=== PATIENT | female | born 1945 | race Caucasian/White ===

== ENCOUNTER → 2018-03-06 10:08 | Outpatient (CLI) | payer MEDICARE, SELFPAY ==
[2018-03-06 12:37] LABS: Hemoglobin A1c 6.3 % (4.2-6.3)
[2018-03-06 12:46] LABS: AST(SGOT) 13 U/L (15-37); Alanine Aminotransfer ALT/SGPT 26 U/L (13-56); Anion Gap 9 (5-15); BUN 18 mg/dL (7-18); BUN/Creat Ratio 22.4 RATIO (10-20); Calcium,Total 9.1 mg/dL (8.5-10.1); Chloride 107 mmol/L (98-107); Cholesterol 148 mg/dL (200); EST Glomerular Filtration Rate 75 mL/min (>60); Est Glom Filt Rate - Afr Amer 90 mL/min (>60); Glucose 93 mg/dL (74-106); High Density Lipoprotein 37 mg/dL; Potassium 3.7 mmol/L (3.5-5.1); Sodium Level 141 mmol/L (136-145); T4 Total, Thyroxin 9.9 ug/dL (4.8-13.9); Thyroid Stim Hormone (TSH) 1.01 uIU/mL (0.358-3.74); Triglycerides 127 mg/dL; Very Low Density Lipoprotein 25 mg/dL (5-40)
== END ==
PROVIDERS: Family Provider Family Medicine; PCP Family Medicine; Visit Provider Family Medicine
DX: I10 Essential (primary) hypertension (principal); E03.9 Hypothyroidism, unspecified; E78.5 Hyperlipidemia, unspecified; R73.9 Hyperglycemia, unspecified
CPT/HCPCS: 36415; 80048; 80061; 83036; 84436; 84443; 84450; 84460

== ENCOUNTER → 2018-09-29 07:06 | Outpatient (CLI) | payer MEDICARE, SELFPAY ==
[2018-09-29 07:46] LABS: Absolute Lymphocyte Count 1.83 X10^3/ul (0.83-4.51); Absolute Neutrophil Count 3.1 X10^3/uL (2.0-7.7); Basophil# 0.09 X10^3/uL; Basophil% 1.6 % (0-1); Eosinophil# 0.28 X10^3/uL; Eosinophils% 4.9 % (0-5); Hematocrit 43.5 % (37-47); Hemoglobin 14.1 g/dl (12.0-15.0); Lymphocyte # 1.83 X10^3/ul (4.0); Lymphocyte % 32.1 % (19-41); Mean Corp Hgb Conc 32.4 g/gl (32-36); Mean Corpuscular Hgb 30.9 pg (27.0-32.0); Mean Corpuscular Volume 95.2 fL (81-99); Mean Platelet Vol. 10.4 fl (6.2-12.0); Monocyte# 0.39 X10^3/uL; Monocyte% 6.8 % (0-10); Neutrophil # 3.11 X10^3/uL (2.7-7.7); Neutrophil % 54.6 % (47-70); Platelet Count 235 K/mm3 (150-450); RBC Distribution Width CV 13.1 % (11.6-14.6); Red Blood Count 4.57 M/mm3 (4.2-5.4); White Blood Count 5.7 K/mm3 (4.4-11.0)
[2018-09-29 07:47] LABS: POSITIVE COUNT NO; POSITIVE DIFFERENTIAL NO; POSITIVE MORPHOLOGY NO
[2018-09-29 08:27] LABS: AST(SGOT) 13 U/L (15-37); Alanine Aminotransfer ALT/SGPT 28 U/L (13-56); Albumin, Serum 3.3 g/dL (3.2-5.0); Alkaline Phosphatase 85 U/L (45-117); Anion Gap 8 (5-15); BUN 17 mg/dL (7-18); BUN/Creat Ratio 21.4 RATIO (10-20); Bilirubin, Direct 0.11 mg/dL (0.00-0.30); Calcium,Total 8.5 mg/dL (8.5-10.1); Chloride 110 mmol/L (98-107); Cholesterol 118 mg/dL (200); EST Glomerular Filtration Rate 75 mL/min (>60); Est Glom Filt Rate - Afr Amer 91 mL/min (>60); Glucose 96 mg/dL (74-106); High Density Lipoprotein 36 mg/dL; Potassium 3.7 mmol/L (3.5-5.1); Protein, Total 7.3 g/dL (6.4-8.2); Sodium Level 144 mmol/L (136-145); T4 Total, Thyroxin 7.9 ug/dL (4.8-13.9); Thyroid Stim Hormone (TSH) 1.13 uIU/mL (0.358-3.74); Triglycerides 117 mg/dL; Very Low Density Lipoprotein 23 mg/dL (5-40)
== END ==
PROVIDERS: Family Provider Family Medicine; PCP Family Medicine; Referring Provider Internal Medicine Cardiovascular Disease; Visit Provider Internal Medicine Cardiovascular Disease
DX: E78.5 Hyperlipidemia, unspecified (principal); R55 Syncope and collapse; E03.9 Hypothyroidism, unspecified; E87.6 Hypokalemia; R00.2 Palpitations
CPT/HCPCS: 36415; 80048; 80061; 80076; 84436; 84443; 85025

== ENCOUNTER → 2018-10-05 12:55 | Outpatient (CLI) | payer MEDICARE, SELFPAY ==
[2018-09-27 13:28] VITALS: BMI 26.2
--- NOTE | 2018-10-05 12:57 | ECHOD_ITS ---
Reason For Study: Palpitations Procedure This was a 2D Doppler, Color Flow transthoracic echocardiogram. Exam performed in department. Left Ventricle Normal size and thickness. The estimated ejection fraction is 65 %. Stage 1 diastolic dysfunction. No regional wall motion abnormalities noted. Right Ventricle Normal size and thickness. Normal systolic function. Atria Normal left atrium. Normal right atrium. Normal atrial septum. Mitral Valve Probable redundant chordae tendinae on anterior mitral leaflet with trivial MR noted. Tricuspid Valve Normal tricuspid valve. Mild (1+) tricuspid valve insufficiency. Right ventricular systolic pressure estimated to be 26 mmHg. Aortic Valve Trisinus/trileaflet aortic valve. Mild diffuse aortic valve thickening. Trivial aortic valve insufficiency. Pulmonic Valve Normal pulmonic valve. Trivial pulmonic valve insufficiency. Great Vessels Normal aortic root. Normal arch. Normal inferior vena cava. Inferior vena cava collapse with sniff. Pericardium/Pleural No pericardial effusion. MMode/2D Measurements & Calculations LVIDd: 3.8 cm IVSd: 1.1 cm Ao root diam: 3.1 cm LVIDs: 2.2 cm LVPWd: 0.98 cm RVDd: 3.2 cm FS: 41.5 % LAV(MOD-bp): 30.0 ml EDV(MOD-sp4): 61.8 ml EDV(MOD-sp2): 62.2 ml LAV(MOD-bp) Indexed: 17.7 ml/m2 ESV(MOD-sp4): 23.7 ml EF(MOD-sp2): 64.7 % LAV(MOD-sp2): 31.9 ml EF(MOD-sp4): 61.7 % LAV(MOD-sp4): 27.4 ml SV(MOD-sp4): 38.1 ml SV(MOD-sp2): 40.2 ml LA A4 area: 12.6 cm2 LA dimension(2D): 3.4 cm RA A4 area: 11.6 cm2 Doppler Measurements & Calculations MV E max adis: 49.5 cm/sec Lat Peak E' Adis: 7.6 cm/sec Med Peak E' Adis: 3.7 cm/sec MV A max adis: 72.5 cm/sec E/E' lat: 6.5 E/E' med: 13.2 MV E/A: 0.68 Ao V2 max: 124.5 cm/sec LV V1 max: 100.0 cm/sec PA V2 max: 104.8 cm/sec Ao max P.2 mmHg LV V1 max P.0 mmHg TR max adis: 225.7 cm/sec TR max P.4 mmHg Interpretation Summary The estimated ejection fraction is 65 %. Stage 1 diastolic dysfunction. Probable redundant chordae tendinae on anterior mitral leaflet with trivial MR noted. Mild (1+) tricuspid valve insufficiency. Right ventricular systolic pressure estimated to be 26 mmHg. Trivial aortic valve insufficiency. Compared to echo report dated 08/07/2013, no appreciable changes noted. Ordering Physician: Christo Dunn Referring Physician: Christo Dunn Performed By: Elise Napier RDCS
== END ==
PROVIDERS: Family Provider Family Medicine; PCP Family Medicine; Referring Provider Internal Medicine Cardiovascular Disease; Visit Provider Internal Medicine Cardiovascular Disease
DX: I10 Essential (primary) hypertension (principal); R00.2 Palpitations; R55 Syncope and collapse
CPT/HCPCS: 93306

== ENCOUNTER → 2018-10-08 09:20 | Outpatient (CLI) | payer MEDICARE, SELFPAY ==
--- NOTE | 2018-10-08 09:23 | STE_ITS ---
Reason For Study: Abn EKG Stress Results Protocol: Stress Echocardiogram Maximum Predicted HR: 149 bpm Target HR: 127 bpm % Maximum Predicted HR: 99 % DurationHeart Rate Stage (mm:ss) (bpm) BP Comment Baseline 90 158/90 Brady Protocol- Stage 1 3:00 118 148/82No chest pain Brady Protocol- Stage 2 3:00 133 176/80No chest pain Brady Protocol- Stage 3 3:00 148 170/82No chest pain Brady Protocol- Stage 4 0:01 148 / No chest pain Recovery 109 128/74 Stress Duration: 9:01 mm:ss Maximum Stress HR: 148 bpm Baseline Echocardiogram Findings The estimated ejection fraction is 65 %. Stress Echo Wall motion Data Resting WM Intermediate WM Stress WM Resting Wall Motion Wall Motion Stress No regional wall motion No regional wall motion abnormalities noted. abnormalities noted. EKG Data Normal intervals are noted. The baseline ECG displays normal sinus rhythm. The patient exercised according to the regular Brady protocol for a total duration of 9:01. The maximum heart rate attained was 150 beats per minute. This was 100% of maximum predicted heart rate. The patient exercised into stage 4 of the Brady protocol. During stress, there were no ST or T wave changes noted to suggest ischemia. No clinical angina was noted. Interpretation Summary The estimated ejection fraction is 65 %. Normal, adequate, treadmill echocardiogram. Negative for ischemia by EKG and echocardiographic criteria. No anginal symptoms noted. Rare PVCs noted. Appropriate blood pressure response to exercise. Average exercise capacity for age. Final LVEF is 75%. Test terminated due to leg discomfort. No complications. Ordering Physician: Christo Dunn MD Referring Physician: Janis Rueda M.D. Performed By: Elise Napier RDCS
== END ==
PROVIDERS: Family Provider Family Medicine; PCP Family Medicine; Referring Provider Internal Medicine Cardiovascular Disease; Visit Provider Internal Medicine Cardiovascular Disease
DX: I10 Essential (primary) hypertension (principal); R00.2 Palpitations; R55 Syncope and collapse; R94.31 Abnormal electrocardiogram [ECG] [EKG]
CPT/HCPCS: 93017; 93350

== ENCOUNTER → 2018-11-12 14:31 | Outpatient (CLI) | payer MEDICARE, SELFPAY ==
[2018-09-27 13:28] VITALS: BMI 26.2
--- NOTE | 2018-11-12 14:34 | BI_ITS ---
MAMMOGRAPHY - BILATERAL SCREENING 3-D ROSA SYNTHESIS REASON FOR EXAM: Female, 72 years old. Bilateral Screening 3-D tomosynthesis PERTINENT HISTORY: No significant family history. TECHNIQUE: 2-D mammograms and 3-D Rosa synthesis of the breast (s) were performed. CAD was performed. COMPARISON: Was made to the study of September 18, 2017. FINDINGS: The breast composition is of heterogeneous fibroglandular tissue. Scattered benign calcifications are seen. No dense spiculated masses or suspicious microcalcifications are identified. No architectural distortion is identified. There is no skin thickening or retraction. There has been no significant change since the prior study of September 18, 2017. BI/SCREENING MAMM (CAD), BILAT IMPRESSION: No mammographic signs of malignancy. Routine yearly mammograms recommended. ASSESSMENT CATEGORY: BIRADS Category 1: Negative. A letter regarding these results will be sent to the patient by the facility within 30 days. FOLLOW UP RECOMMENDATION: Yearly follow up mammogram recommended. (A) Approximately 10% of breast cancers are not detected by mammography. A normal mammogram should not delay biopsy of a clinically suspicious abnormality. Electronically Signed: Harvinder Farah, at 11:32 EST Tel , Service support ,
== END ==
PROVIDERS: Family Provider Family Medicine; PCP Family Medicine; Referring Provider Family Medicine; Visit Provider Family Medicine
DX: Z12.31 Encounter for screening mammogram for malignant neoplasm of breast (principal)
CPT/HCPCS: 77063; 77067

== ENCOUNTER → 2018-11-14 14:47 | Outpatient (CLI) | payer MEDICARE, SELFPAY | PROVIDERS: Family Provider Family Medicine; PCP Family Medicine; Referring Provider Internal Medicine Gastroenterology; Visit Provider Internal Medicine Gastroenterology | DX: K58.1 Irritable bowel syndrome with constipation (principal); R10.9 Unspecified abdominal pain | CPT/HCPCS: 82274; 87177; 87209; 87506 ==

== ENCOUNTER → 2019-01-18 15:36 | Outpatient (CLI) | payer MEDICARE, SELFPAY ==
[2018-09-27 13:28] VITALS: BMI 26.2
--- NOTE | 2019-01-18 12:10 | COLBX_PTH ---
PATIENT: ANDREY TAY LOC: [facility] U#:[id number] AGE/SX: 79/F ROOM: RE01/18/[address]: Dr. Kelton Reed MD : 1945 BED: DIS: SPEC #: [id number] RECD: 01/18/19 15:32 STATUS: KATHLEEN KAREN #: [id number] DELMY: 01/18/19 12:[address]: Kelton Reed DEPT: SURGICAL PATHOLOGY RECD BY: Guerrero Franklin ENTERED: 01/21/19 13:51 SP TYPE: COLON BX OTHR DR: Dr. Janis Rueda MD [facility] Tissues: Right colon Procedures: Surgery Specimen Level IV HEADER OPERATION: Colonoscopy with biopsy PRE-OP DIAGNOSIS: IBS TISSUE SUBMITTED: Right colon polyp biopsies, rule out adenoma MICROSCOPIC DIAGNOSIS Right colon polyp, biopsy: Polypoid fragments of benign colonic tissue. See comment. AM:adenike 01/22/19 COMMENT Neither hyperplastic nor adenomatous change is identified. Clinical correlation is suggested. MICROSCOPIC DESCRIPTION Slides are reviewed. GROSS DESCRIPTION Received in fixative is one container labeled with the patient's name and designated right colon. The specimen consists of two irregular fragments of light duarte soft tissue that in aggregate measure 0.3 x 0.3 x 0.1 cm. The specimen is totally submitted in one cassette. / SJ:rg 01/21/19 TC:5 CPT: 74254
== END ==
PROVIDERS: Family Provider Family Medicine; PCP Family Medicine; Referring Provider Internal Medicine Gastroenterology; Visit Provider Internal Medicine Gastroenterology
DX: K58.9 Irritable bowel syndrome, unspecified (principal)
CPT/HCPCS: 88305

== ENCOUNTER → 2019-05-03 08:05 | Outpatient (CLI) | payer MEDICARE, SELFPAY ==
[2019-04-11 13:50] VITALS: BMI 26.9
[2019-05-03 10:48] LABS: AST(SGOT) 19 U/L (15-37); Alanine Aminotransfer ALT/SGPT 32 U/L (13-56); Anion Gap 8 (5-15); BUN 14 mg/dL (7-18); BUN/Creat Ratio 18.3 RATIO (10-20); Calcium,Total 8.9 mg/dL (8.5-10.1); Chloride 110 mmol/L (98-107); Cholesterol 157 mg/dL (200); Creatinine, Serum 0.77 mg/dL (0.55-1.02); EST Glomerular Filtration Rate 79 mL/min (>60); Est Glom Filt Rate - Afr Amer 95 mL/min (>60); Glucose 105 mg/dL (74-106); High Density Lipoprotein 42 mg/dL; Potassium 3.9 mmol/L (3.5-5.1); Sodium Level 144 mmol/L (136-145); T4 Total, Thyroxin 9.8 ug/dL (4.8-13.9); Thyroid Stim Hormone (TSH) 1.07 uIU/mL (0.358-3.74); Triglycerides 129 mg/dL; Very Low Density Lipoprotein 26 mg/dL (5-40)
== END ==
PROVIDERS: Family Provider Family Medicine; PCP Family Medicine; Referring Provider Family Medicine; Visit Provider Family Medicine
DX: I10 Essential (primary) hypertension (principal); E03.9 Hypothyroidism, unspecified; E78.5 Hyperlipidemia, unspecified
CPT/HCPCS: 36415; 80048; 80061; 84436; 84443; 84450; 84460

== ENCOUNTER → 2019-07-01 12:04 | Outpatient (CLI) | payer MEDICARE, SELFPAY ==
[2019-04-11 13:50] VITALS: BMI 26.9
--- NOTE | 2019-07-01 12:07 | RAD_ITS ---
STUDY: X-RAY - LEFT KNEE REASON FOR EXAM: Female, 73 years old. Pain. TECHNIQUE: 4 view(s) of the knee. COMPARISON: None. FINDINGS: Normal visualized distal femur. Normal visualized proximal tibia and fibula. Normal proximal tibiofibular articulation. Normal medial femorotibial compartment. Normal lateral femorotibial compartment. Normal patellofemoral articulation. There is a soft tissue prominence in the suprapatellar region suggesting a small volume joint effusion. The soft tissue structures are unremarkable. RAD/Knee 4 or More Views IMPRESSION: Small joint effusion. No demonstrated fracture, dislocation, or destructive osseous lesion. Electronically Signed: Ceferino Au MD at 2:44 EDT , Service support ,
== END ==
PROVIDERS: Family Provider Family Medicine; PCP Family Medicine; Referring Provider Family Medicine; Visit Provider Family Medicine
DX: M25.562 Pain in left knee (principal)
CPT/HCPCS: 73564

== ENCOUNTER 2019-07-30 09:30 | Outpatient (RCR) | payer MEDICARE, SELFPAY ==
[2019-04-11 13:50] VITALS: BMI 26.9
--- NOTE | 2019-07-11 09:37 | HP.PTEVAL ---
Patient's Visit Information ANDREY TAY is a 73 year old F referred to Physical Therapy by Janis Rueda MD with a diagnosis of L knee pain. Date of Evaluation: 07/04/19 Physical Therapist: Olaf Gaming DPT - Visit Plan Frequency: 2x /Week Duration: 4-6 Weeks Plan: Start with ROM progressing as toelrated, add in strengthening in [place] progressing as able. May use modaltiies if needed. - Subjective Findings: Pt. is here today for her initial evaluation with diagnosis of knee pain. Pt. reports no mech of injury, no N/T. pt. did have an xray showing no fx and no osteoarthtritis. Pt. dose have some small joint effusion as seen in her xray. Pt. does not use AD. Pt. repots increased pain with steps, walking and standing. Reduced pain with sitting and lying down. Pt. has does some light icing, but not consistently. Pt. is able to sleep wihtout much issues. She is hopeful to reduce her symptoms get back to all walking and recreational actvities without limitations. - Pain L knee Pain Intensity (Out of 10): 3 Pain Intensity Range: 0, 6 - Objective POSTURE: Pt. has slgith wt. shift to R side in stance. Normal posture other pedroza, slight L knee flexion in stance. PALPATION: Pt. has slight increase in symptoms at L medial joint line and same aat posterior aspect of popliteal fossa. NEURO: normal throughout. ROM: 0-5-121deg. L knee ROM. Pt. has normal ROM of rest of knee and hips. MMT: Pt. has general 4/5 strength of bilateral LEs. GAIT: Pt. ambulates without AD. Pt. lacks TKE on LLE during stance phase. Pt. has antalgic patern. STAIRS: pt. has increased pain with both ascending and descending. - Special Tests L Knee Juan - Meniscus: Positive L Knee Disco Test - Meniscus: Positive L Knee Tiburcio - ACL: Negative L Knee Anterior Drawer - ACL: Negative L Knee Pivot Shift - ACL, Ant. Rotator Instability: Negative L Knee Posterior Sag - PCL: Negative L Knee Valgus - MCL: Negative L Knee Varus - LCL: Negative - Goals Goal 1:: Pt. to be I with HEP. Goal Time Frame: 4-6 Weeks Goal 2:: Pt. to have icnreased L knee ROM to full without increase insymptoms. Goal Time Frame: 4-6 Weeks Goal 3:: Pt. to ambulate unlimited distances withotu increase in symptoms. Goal Time Frame: 4-6 Weeks Goal 4:: Pt. to negotiate steps with 1 HR with reciprocal patern withotu increase in symptoms. Goal Time Frame: 4-6 Weeks Goal 5:: Pt. to have increased strength in LLE by 1/2 grade of all effected musculature. - Rehabilitation Potential Physical Therapy Diagnosis: Pt. has signs and symptoms consistent with L knee pain. Pt. has pain with end ranges of motions and increased pain with special testing with torsion. DUe to xray being negative for acute fx and no OA, I would suggest degenerative meniscal tear as her issuse. I would like to trial PT to reduce symptoms and increase stability around her knee joint. Rehabilitation Potential: Good - Anticipated Interventions Patient/Client Instruction: Educate patient on: Condition, Plan of Care, Risk Factors, Benefits of Fitness Program For the Purpose of:: To improve decision making, To facilitate caregiver knowledge, To improve self management, To prevent re-injury, To improve ability to perform tasks related to life management Therapeutic Exercise to Include: Strength training, Power training, Endurance training, Balance training, Body mechanics, Postural training, Flexibilty training, Gait and locomotor training, Passive ROM, Active ROM, Dynamic Lumbar Stabilization For the Purpose of:: To decrease pain, To increase ROM, To improve nutrient delivery to tissue, To increase oxygenation perfusion, To improve muscle performance and motor function Manual Therapy Techniques to Include: Massage, Scar massage For the Purpose of:: To decrease pain, To increase ROM, To improve nutrient delivery to tissue, To increase oxygenation perfusion, To improve muscle performance and motor function, To improve ability to perform ADL's Thermo therapy (hot pack): Yes Ultrasound (thermal/non thermal): Yes For the Purpose of:: To decrease pain, To decrease swelling/inflammation, To increase ROM Thank you for the opportunity to evaluate your patient. For Medicare and Medicare HMO plans, please review the plan of care and approve it. It will need to be FAXED BACK to us at [phone] for Medicare purposes. For Medicare only, by signing this I certify the plan of care. Please let me know if there are questions or concerns regarding this plan of care. Physician Signature: Date:
--- NOTE | 2019-07-30 13:35 | HP.PTDCSUM ---
HP - PT D/C Summary It has been my pleasure to treat ANDREY TAY under orders from Janis Rueda MD, for the diagnosis of L knee pain for a total of 6 visit(s). Discharge Date: 07/30/19 Please see the following information for a summary of their discharge status. - Subjective Subjective: Pt. reports no pain this date. I am doing much better today. Pt. reprots no issues. She has not had any problems over the past week. Pt. reports being 95% better overall. - Pain L knee Pain Intensity (Out of 10): 0 - Overall Improvement % Improvement: 95 - Objective Objective/Function: ROM: 0-0-125deg NE,. MMT: 5/5 throughout without increase in symptoms. GAIT: Pt. has good walking pattern without increase in symptoms, normal stair negotiation. Pt. is no longer having any pain - Goals Goal 1:: Pt. to be I with HEP. Goal Progress: Goal Met Goal 2:: Pt. to have icnreased L knee ROM to full without increase insymptoms. Goal Progress: Goal Met Goal 3:: Pt. to ambulate unlimited distances withotu increase in symptoms. Goal Progress: Goal Met Goal 4:: Pt. to negotiate steps with 1 HR with reciprocal patern withotu increase in symptoms. Goal 5:: Pt. to have increased strength in LLE by 1/2 grade of all effected musculature. - Plan Plan: Pt. to be DC to HEP at this point in time. - D/C Information Discharge Comments: Pt. was treated for her knee pain with ROM, exercises and modaltities. Pt. is no longer having any pain and has improved ROM. Pt. is back to walking with minimal issues. Pt. will be DC from PT at this point in time. If there are questions or concerns regarding this patient's physical therapy, please feel free to call me at [phone]. Thank you for the referral of this patient. Sincerely, Olaf Gaming DPT
== END 2019-07-30 14:11 | disposition home or self-care (01) ==
LOC: PT 09:30
PROVIDERS: Family Provider Family Medicine; PCP Family Medicine; Referring Provider Family Medicine; Visit Provider Family Medicine
DX: M25.569 Pain in unspecified knee (principal)
CPT/HCPCS: 97035; 97110; 97161; 97530

== ENCOUNTER → 2019-10-25 08:06 | Outpatient (CLI) | payer MEDICARE, SELFPAY ==
[2019-10-10 12:58] VITALS: BMI 26.4
[2019-10-25 10:12] LABS: Anion Gap 5 (5-15); BUN 20 mg/dL (7-18); BUN/Creat Ratio 23.4 RATIO (10-20); Calcium,Total 9.1 mg/dL (8.5-10.1); Chloride 108 mmol/L (98-107); Creatinine, Serum 0.86 mg/dL (0.55-1.02); EST Glomerular Filtration Rate 69 mL/min (>60); Est Glom Filt Rate - Afr Amer 84 mL/min (>60); Glucose 109 mg/dL (74-106); Potassium 3.7 mmol/L (3.5-5.1); Sodium Level 141 mmol/L (136-145)
== END ==
PROVIDERS: Family Provider Family Medicine; PCP Family Medicine; Referring Provider Family Medicine; Visit Provider Nurse Practitioner Family
DX: I10 Essential (primary) hypertension (principal); E78.5 Hyperlipidemia, unspecified; R00.2 Palpitations; E87.6 Hypokalemia; E03.9 Hypothyroidism, unspecified; Z98.890 Other specified postprocedural states
CPT/HCPCS: 36415; 80048

== ENCOUNTER → 2019-11-14 10:13 | Outpatient (CLI) | payer MEDICARE, SELFPAY ==
[2019-04-11 13:50] VITALS: BMI 26.9
[2019-10-10 12:58] VITALS: BMI 26.4
--- NOTE | 2019-11-14 10:15 | BI_ITS ---
MAMMOGRAPHY - BILATERAL SCREENING 3-D TOMOSYNTHESIS REASON FOR EXAM: Female, 73 years old. Routine annual screening mammogram. PERTINENT HISTORY: History of excisional biopsy at age 22 and at age 28. TECHNIQUE: 2-D mammograms and 3-D Tomosynthesis of the breast (s) were performed. CAD was performed. COMPARISON: November 12, 2018, September 18, 2017 FINDINGS: The breast composition is almost entirely fat. Scattered benign calcifications are seen. No dense spiculated masses or suspicious microcalcifications are identified. No architectural distortion is identified. There is no skin thickening or retraction. There has been no significant change since the prior study. BI/SCREEN MAMM (CAD) W/ROSA BILAT IMPRESSION: No mammographic signs of malignancy. Routine yearly mammograms recommended. ASSESSMENT CATEGORY: BIRADS Category 2: Benign. A letter regarding these results will be sent to the patient by the facility within 30 days. FOLLOW UP RECOMMENDATION: Yearly follow up mammogram recommended. (A) Approximately 10% of breast cancers are not detected by mammography. A normal mammogram should not delay biopsy of a clinically suspicious abnormality. Electronically Signed: Jamison Ayala MD at 15:29 EST , Service support ,
== END ==
PROVIDERS: Family Provider Family Medicine; PCP Family Medicine; Referring Provider Family Medicine; Visit Provider Family Medicine
DX: Z12.31 Encounter for screening mammogram for malignant neoplasm of breast (principal)
CPT/HCPCS: 77063; 77067

== ENCOUNTER → 2020-06-15 08:47 | Outpatient (CLI) | payer MEDICARE, SELFPAY ==
[2020-06-09 11:05] VITALS: BMI 26.4
[2020-06-15 10:30] LABS: AST(SGOT) 14 U/L (15-37); Alanine Aminotransfer ALT/SGPT 29 U/L (13-56); Anion Gap 6 (5-15); BUN 18 mg/dL (7-18); Calcium,Total 8.7 mg/dL (8.5-10.1); Chloride 109 mmol/L (98-107); Cholesterol 159 mg/dL (200); Creatinine, Serum 0.82 mg/dL (0.55-1.02); EST Glomerular Filtration Rate 73 mL/min (>60); Est Glom Filt Rate - Afr Amer 88 mL/min (>60); Glucose 99 mg/dL (74-106); High Density Lipoprotein 43 mg/dL; Potassium 3.6 mmol/L (3.5-5.1); Sodium Level 139 mmol/L (136-145); T4 Total, Thyroxin 8.8 ug/dL (4.8-13.9); Thyroid Stim Hormone (TSH) 0.61 uIU/mL (0.358-3.74); Triglycerides 117 mg/dL; Very Low Density Lipoprotein 23 mg/dL (5-40)
[2020-06-15 16:36] LABS: Hemoglobin A1c 5.9 % (3.8-5.6)
== END ==
PROVIDERS: PCP Family Medicine; Referring Provider Family Medicine; Visit Provider Family Medicine
DX: I10 Essential (primary) hypertension (principal); E78.5 Hyperlipidemia, unspecified; E03.9 Hypothyroidism, unspecified; Z83.3 Family history of diabetes mellitus
CPT/HCPCS: 36415; 80048; 80061; 83036; 84436; 84443; 84450; 84460

== ENCOUNTER → 2020-11-16 10:10 | Outpatient (CLI) | payer MEDICARE, SELFPAY ==
[2020-06-09 11:05] VITALS: BMI 26.4
--- NOTE | 2020-11-16 10:13 | BI_ITS ---
MAMMOGRAPHY - BILATERAL SCREENING REASON FOR EXAM: Female, 74 years old. Routine annual screening examination. PERTINENT HISTORY: There is omentum fat stranding in the lower abdomen and pelvis may represent peritonitis. TECHNIQUE: Digital bilateral breast rosa (3D mammographic acquisition) in the CC and MLO projections. 2-D mediolateral oblique (MLO) and craniocaudad (CC) views of both breasts were obtained. CAD: Full Field Digital Mammography with Computer Added Detection was performed. COMPARISON: 11/14/2019 and 11/12/2018 FINDINGS: Breast Composition: There are scattered areas of fibroglandular density. Scattered benign calcifications are seen. No dense spiculated masses or suspicious microcalcifications are identified. No architectural distortion is identified. There is no skin thickening or retraction. There has been no significant change since the prior study. BI/SCREEN MAMM (CAD) W/ROSA BILAT IMPRESSION: Stable bilateral screening mammogram. Yearly follow-up mammogram recommended. (A) ASSESSMENT CATEGORY: BIRADS Category 2: Benign. A letter regarding these results will be sent to the patient by the facility within 30 days. Approximately 10% of breast cancers are not detected by mammography. A normal mammogram should not delay biopsy of a clinically suspicious abnormality. [id number] Electronically Signed: Annette Kwan, at 16:11 EST Tel , Service support ,
== END ==
PROVIDERS: PCP Family Medicine; Referring Provider Family Medicine; Visit Provider Family Medicine
DX: Z12.31 Encounter for screening mammogram for malignant neoplasm of breast (principal)
CPT/HCPCS: 77063; 77067

== ENCOUNTER → 2021-03-09 10:14 | Outpatient (CLI) | payer MEDICARE, SELFPAY ==
[2020-06-09 11:05] VITALS: BMI 26.4
[2021-03-09 12:53] LABS: Absolute Lymphocyte Count 1.39 X10^3/uL (0.83-4.51); Absolute Neutrophil Count 3.5 X10^3/uL (2.0-7.7); Basophil# 0.08 X10^3/uL; Basophil% 1.4 % (0-1); Eosinophil# 0.17 X10^3/uL; Hematocrit 46.3 % (37-47); Hemoglobin 14.8 g/dL (12.0-15.0); Lymphocyte # 1.39 X10^3/ul (0.83-4.51); Lymphocyte % 24.8 % (19-41); Mean Corpuscular Hgb 31.1 pg (27.0-32.0); Mean Corpuscular Volume 97.3 fL (81-99); Mean Platelet Vol. 11.3 fl (6.2-12.0); Monocyte# 0.44 X10^3/uL; Monocyte% 7.8 % (0-10); NRBC Flagged by Analyzer 0 % (0-5); Neutrophil # 3.51 X10^3/uL (2.7-7.7); Neutrophil % 62.6 % (47-70); Platelet Count 256 K/mm3 (150-450); RBC Distribution Width CV 12.8 % (11.6-14.6); RBC Distribution Width SD 46.1 fl (35.1-43.9); Red Blood Count 4.76 M/mm3 (4.2-5.4); White Blood Count 5.6 K/mm3 (4.4-11.0)
[2021-03-09 13:03] LABS: AST(SGOT) 20 U/L (15-37); Alanine Aminotransfer ALT/SGPT 42 U/L (13-56); Albumin, Serum 3.9 g/dL (3.2-5.0); Alkaline Phosphatase 80 U/L (45-117); Anion Gap 8 (5-15); BUN 17 mg/dL (7-18); BUN/Creat Ratio 19.2 RATIO (10-20); Calcium,Total 9.2 mg/dL (8.5-10.1); Chloride 106 mmol/L (98-107); Cholesterol 144 mg/dL (200); Creatinine, Serum 0.89 mg/dL (0.55-1.02); EST Glomerular Filtration Rate 66 mL/min (>60); Est Glom Filt Rate - Afr Amer 80 mL/min (>60); Globulin 3.9 g/dL (2.2-4.2); Glucose 95 mg/dL (74-106); High Density Lipoprotein 44 mg/dL; Microalbumin,Random Urine 20.5 mg/L (NO RANGE EST.); Microalbumin:Creatinine Ratio 7.4 mg/g CRE (<30 mg/g CRE); Potassium 3.5 mmol/L (3.5-5.1); Protein, Total 7.8 g/dL (6.4-8.2); Sodium Level 141 mmol/L (136-145); T4 Free Direct 1.13 ng/dL (0.76-1.46); Thyroid Stim Hormone (TSH) 0.74 uIU/mL (0.358-3.74); Triglycerides 100 mg/dL; Very Low Density Lipoprotein 20 mg/dL (5-40)
[2021-03-09 13:30] LABS: Hemoglobin A1c 5.9 % (3.8-5.6)
== END ==
PROVIDERS: PCP Family Medicine; Visit Provider Family Medicine
DX: E11.9 Type 2 diabetes mellitus without complications (principal); E03.9 Hypothyroidism, unspecified; E26.1 Secondary hyperaldosteronism; E78.5 Hyperlipidemia, unspecified; Z51.81 Encounter for therapeutic drug level monitoring
CPT/HCPCS: 36415; 80053; 80061; 82043; 82570; 83036; 84439; 84443; 85025

== ENCOUNTER → 2021-09-30 09:50 | Outpatient (CLI) | payer MEDICARE, SELFPAY ==
--- NOTE | 2021-09-30 10:06 | MRI_ITS ---
STUDY: MRI BRAIN WITH AND WITHOUT CONTRAST REASON FOR EXAM: Female, 75 years old. HX OF STROKE, LT SIDED HEADACHE, FACIAL PARESTHESIA TECHNIQUE: Standardized multiplanar fat and water weighted pulse sequences were obtained. IV 13 CC DOTAREM was administered for the contrast portion of the examination. COMPARISON: 06/13/2014 FINDINGS: Normal size of the ventricles and extra-axial spaces for the patient''s age. There are multiple white matter hyperintensities, distributed throughout the deep white matter tracts of the cerebral hemispheres, consistent with mild chronic white matter ischemic changes. Normal bilateral basal ganglia. Normal thalami. There is no extra-axial fluid accumulation. Normal flow voids within the major intracranial circulation suggesting patency by spin echo criteria. Normal venous enhancement. There is no enhancing intra-axial or extra-axial abnormality. Normal sella turcica, pituitary gland, infundibular stalk, optic chiasm and hypothalamus. Normal tectal plate and pineal gland. Normal midbrain, jessy and medulla. Normal cerebellum. Normal basal cisterns. There is fluid and mucosal thickening on the right maxillary sinus. MRI/Brain W/WO Contrast IMPRESSION: No acute intracranial abnormality. Mild chronic microvascular ischemic changes. Right maxillary sinus disease. Electronically Signed: Stacy Javier MD at 8:11 EST Tel , Service support ,
[2021-09-30 10:21] LABS: CREATININE FINGERSTICK 0.7 mg/dL (0.55-1.02); EGFR FINGERSTICK > 60.0000 mL/min (>60)
== END ==
PROVIDERS: PCP Family Medicine; Visit Provider Family Medicine
DX: R51.9 Headache, unspecified (principal); R20.2 Paresthesia of skin; Z86.73 Personal history of transient ischemic attack (TIA), and cerebral infarction without residual deficits
CPT/HCPCS: 70553; A9575

== ENCOUNTER → 2021-11-17 08:14 | Outpatient (CLI) | payer MEDICARE, SELFPAY ==
--- NOTE | 2021-11-17 08:16 | BI_ITS ---
MAMMOGRAPHY - BILATERAL SCREENING 3-D TOMOSYNTHESIS REASON FOR EXAM: Female, 75 years old. SCREENING PERTINENT HISTORY: No significant family history. TECHNIQUE: 2-D mammograms and 3-D Tomosynthesis of the breast (s) were performed. CAD was performed. COMPARISON: 11/16/2020 FINDINGS: The breast composition is heterogeneously dense that can obscure small breast masses. Scattered benign calcifications are seen. No dense spiculated masses or suspicious microcalcifications are identified. No architectural distortion is identified. There is no skin thickening or retraction. There has been no significant change since the prior study. BI/SCRN MAMM (CAD)W/ROSA BILAT IMPRESSION: No mammographic signs of malignancy. Routine yearly mammograms recommended. ASSESSMENT CATEGORY: BIRADS Category 1: Negative. A letter regarding these results will be sent to the patient by the facility within 30 days. FOLLOW UP RECOMMENDATION: Yearly follow up mammogram recommended. (A) Approximately 10% of breast cancers are not detected by mammography. A normal mammogram should not delay biopsy of a clinically suspicious abnormality. Electronically Signed: Lemuel Nova MD at 9:06 EST Tel , Service support ,
== END ==
PROVIDERS: PCP Family Medicine; Referring Provider Family Medicine; Visit Provider Family Medicine
DX: Z12.31 Encounter for screening mammogram for malignant neoplasm of breast (principal)
CPT/HCPCS: 77063; 77067

== ENCOUNTER → 2022-03-11 | Outpatient (CLI) | payer MEDICARE, SELFPAY ==
--- NOTE | 2022-03-11 10:38 | RAD_ITS ---
STUDY: X-RAY CHEST REASON FOR EXAM: Female, 76 years old. CHEST PAIN TECHNIQUE: Frontal and lateral views of the chest. COMPARISON: 06/12/2014 FINDINGS: The lungs are clear and expanded. There is no demonstrated pleural abnormality. Normal size heart. Normal mediastinum and cullen. Normal visualized pulmonary arteries. Normal visualized aortic arch and descending thoracic aorta. There are diffuse degenerative changes of the visualized thoracic spine. Normal visualized ribs, clavicles, and shoulders. There is no demonstrated abnormality of the visualized soft tissue structures of the upper abdomen. RAD/Chest PA and Lateral IMPRESSION: No acute cardiopulmonary process. Electronically Signed: Kimberley Bragg MD at 11:25 EDT ,
== END | disposition home or self-care (01) ==
LOC: MTRAD 10:35
PROVIDERS: PCP Family Medicine; Referring Provider Family Medicine; Visit Provider Family Medicine
DX: R07.9 Chest pain, unspecified (principal)
CPT/HCPCS: 71046

== ENCOUNTER → 2022-03-22 | Outpatient (CLI) | payer MEDICARE, SELFPAY ==
--- NOTE | 2022-03-23 10:03 | STRESSREP ---
Stress Test Report Date: 03-22-2022 Procedure: Pharmacologic stress nuclear imaging study Indications: Chest pain; abnormal ECG; wide-complex tachycardia Consent: Per the patient Procedure: The patient underwent pharmacologic (Regadenoson 0.4mg ) evaluation with a peak heart rate of 104 beats per minute (71%predicted maximal heart rate) and a peak blood pressure of 144/68 mmHg. The baseline ECG demonstrated normal sinus rhythm. The peak pharmacologic ECG demonstrated no obvious ST segment changes. There was a rare PVC during recovery. There was no complaint of chest discomfort during pharmacologic infusion or recovery. The examination was discontinued secondary to completion of protocol. Impression: 1. Pharmacologic (Regadenoson) evaluation 2. Peak pharmacologic ECG with no obvious ST segment change. 3. There were no cardiac dysrhythmias pretest, during pharmacologic infusion, or recovery. 4. Nuclear images pending Myocardial perfusion imaging study: Technique: The patient was injected with 12.0 millicuries of technetium 99m Cardiolite and subsequently rest SPECT Cardiolite nuclear imaging was obtained in the horizontal long, vertical long, and short axis views. The patient underwent pharmacologic (Regadenoson) evaluation with a peak heart rate of 104 beats per minute (71% percent predicted maximal heart rate) and a peak blood pressure of 144/68 mmHg. The patient was injected with 33.9 millicuries of technetium 99m Cardiolite and subsequently stress SPECT Cardiolite nuclear imaging was obtained in the horizontal long, vertical long, and short axis views. A gated Cardiolite study at peak stress was obtained. Interpretation: Rest and stress SPECT Cardiolite nuclear imaging status post realignment, normalization, and attenuation correction demonstrate relative uniform tracer uptake and myocardial perfusion appearing within normal limits. There is end systolic thickening and brightening. The gated Cardiolite study demonstrates myocardial thickening and inward wall motion. The reported LVEF is 77%. Impression: 1. Rest and stress SPECT Cardiolite nuclear imaging demonstrate relative uniform tracer uptake and myocardial perfusion appearing within normal limits. 2. The gated Cardiolite study reports an LVEF of 77%. This note was generated with [employer] software. It may contain incorrect words, spelling, and punctuation that were not noted in checking the note before signing.
== END | disposition home or self-care (01) ==
LOC: CVS 07:07
PROVIDERS: PCP Family Medicine; Referring Provider Family Medicine; Visit Provider Family Medicine
DX: R07.9 Chest pain, unspecified (principal); R94.31 Abnormal electrocardiogram [ECG] [EKG]
CPT/HCPCS: 78452; 93017; A9500; A4216; J2785

== ENCOUNTER → 2022-04-21 | Outpatient (CLI) | payer MEDICARE, SELFPAY ==
--- NOTE | 2022-04-21 11:09 | US_ITS ---
STUDY: ULTRASOUND BREAST - LEFT REASON FOR EXAM: Female, 76 years old. Left medial breast pain. TECHNIQUE: Axial and longitudinal images of the LEFT breast were performed with a high resolution ultrasound transducer. # OF IMAGES: 17 COMPARISON: Comparison is made with prior sonogram of the left breast dated 11/10/2014. FINDINGS: LEFT Breast: The medial aspect of the left breast was examined by ultrasound. There is heterogeneous glandular tissue. No sonographic abnormality is seen. US/Breast Limited Unilateral IMPRESSION: No sonographic abnormality is seen. ASSESSMENT CATEGORY: BIRADS Category 1: Negative. A letter regarding these results will be sent to the patient by the facility within 30 days. Electronically Signed: Frank Gray MD at 11:50 EDT ,
== END | disposition home or self-care (01) ==
LOC: OPUS 11:08
PROVIDERS: PCP Family Medicine; Visit Provider Family Medicine
DX: N64.4 Mastodynia (principal)
CPT/HCPCS: 76642

== ENCOUNTER → 2022-09-22 | Outpatient (CLI) | payer MEDICARE, SELFPAY ==
[2022-09-22 12:39] LABS: Anion Gap 4 (5-15); BUN 17 mg/dL (7-18); BUN/Creat Ratio 18.2 RATIO (10-20); Calcium,Total 9.8 mg/dL (8.5-10.1); Chloride 108 mmol/L (98-107); Creatinine, Serum 0.94 mg/dL (0.55-1.02); EST Glomerular Filtration Rate 62 mL/min (>60); Est Glom Filt Rate - Afr Amer 75 mL/min (>60); Glucose 95 mg/dL (74-106); Sodium Level 140 mmol/L (136-145)
== END | disposition home or self-care (01) ==
LOC: BFHLAB 10:48
PROVIDERS: PCP Family Medicine; Visit Provider Family Medicine
DX: N18.31 Chronic kidney disease, stage 3a (principal); R73.01 Impaired fasting glucose
CPT/HCPCS: 36415; 80048; 83036

== ENCOUNTER → 2022-11-24 | Outpatient (CLI) | payer MEDICARE, SELFPAY ==
--- NOTE | 2022-11-24 10:14 | BI_ITS ---
MAMMOGRAPHY - BILATERAL SCREENING REASON FOR EXAM: Female, 76 years old. Routine annual screening examination. PERTINENT HISTORY: Grandmother with breast cancer. Remote left excisional breast biopsies. TECHNIQUE: Digital bilateral breast rosa (3D mammographic acquisition) in the CC and MLO projections. 2-D mediolateral oblique (MLO) and craniocaudad (CC) views of both breasts were obtained. CAD: Full Field Digital Mammography with Computer Added Detection was performed. COMPARISON: Comparison is made with prior study dated 11/17/2021 and 11/16/2020. FINDINGS: Breast Composition: The breasts are heterogeneously dense, which may obscure small masses. There are no dominant masses or suspicious calcifications. No other significant abnormalities are identified. There has been no significant change since the prior study. BI/SCRN MAMM (CAD)W/ROSA BILAT IMPRESSION: Stable bilateral screening mammogram. Yearly follow-up mammogram recommended. (A) ASSESSMENT CATEGORY: BIRADS Category 1: Negative. A letter regarding these results will be sent to the patient by the facility within 30 days. Approximately 10% of breast cancers are not detected by mammography. A normal mammogram should not delay biopsy of a clinically suspicious abnormality. [id number] Electronically Signed: Frank Gray MD at 12:21 EST ,
== END | disposition home or self-care (01) ==
LOC: OPBI 10:12
PROVIDERS: PCP Family Medicine; Visit Provider Family Medicine
DX: Z12.31 Encounter for screening mammogram for malignant neoplasm of breast (principal)
CPT/HCPCS: 77063; 77067

== ENCOUNTER → 2022-12-09 | Outpatient (CLI) | payer MEDICARE, SELFPAY ==
[2022-12-09 18:17] LABS: Absolute Lymphocyte Count 1.88 X10^3/uL (0.83-4.51); Absolute Neutrophil Count 5.3 X10^3/uL (2.0-7.7); Basophil# 0.08 X10^3/uL; Eosinophil# 0.25 X10^3/uL; Eosinophils% 3.1 % (0-5); Hematocrit 43.3 % (37-47); Hemoglobin 14.5 g/dL (12.0-15.0); Lymphocyte # 1.88 X10^3/ul (0.83-4.51); Lymphocyte % 23.4 % (19-41); Mean Corp Hgb Conc 33.5 g/dL (32-36); Mean Corpuscular Hgb 32.2 pg (27.0-32.0); Mean Corpuscular Volume 96.2 fL (81-99); Monocyte# 0.56 X10^3/uL; NRBC Flagged by Analyzer 0 % (0-5); Neutrophil # 5.25 X10^3/uL (2.7-7.7); Neutrophil % 65.3 % (47-70); Platelet Count 259 K/mm3 (150-450); RBC Distribution Width CV 12.7 % (11.6-14.6); RBC Distribution Width SD 44.9 fl (35.1-43.9)
[2022-12-09 18:42] LABS: ALB/GLOB Ratio 0.9 RATIO (0.9-2.4); AST(SGOT) 14 U/L (15-37); Alanine Aminotransfer ALT/SGPT 35 U/L (13-56); Albumin, Serum 3.5 g/dL (3.2-5.0); Alkaline Phosphatase 72 U/L (45-117); Anion Gap 8 (5-15); BUN 19 mg/dL (7-18); BUN/Creat Ratio 21.7 RATIO (10-20); Chloride 108 mmol/L (98-107); Creatinine, Serum 0.88 mg/dL (0.55-1.02); EST Glomerular Filtration Rate 67 mL/min (>60); Est Glom Filt Rate - Afr Amer 81 mL/min (>60); Globulin 3.9 g/dL (2.2-4.2); Glucose 146 mg/dL (74-106); Potassium 3.6 mmol/L (3.5-5.1); Protein, Total 7.4 g/dL (6.4-8.2); Sodium Level 142 mmol/L (136-145); T4 Free Direct 1.12 ng/dL (0.76-1.46); Thyroid Stim Hormone (TSH) 1.02 uIU/mL (0.358-3.74)
== END | disposition home or self-care (01) ==
LOC: BFHLAB 16:22
PROVIDERS: PCP Family Medicine; Visit Provider Family Medicine
DX: E03.9 Hypothyroidism, unspecified (principal); E26.1 Secondary hyperaldosteronism; R23.2 Flushing
CPT/HCPCS: 36415; 80053; 83520; 84439; 84443; 85025

== ENCOUNTER → 2023-03-28 | Outpatient (CLI) | payer MEDICARE, SELFPAY ==
--- NOTE | 2023-03-28 08:04 | CDU_ITS ---
Reason For Study: Dizziness Rt. Velocities/BP Lt. Velocities/BP Prox CCA 56/12.6 cm/sec. Prox CCA 63.6/13.5 cm/sec. Mid CCA 56/12.6 cm/sec. Mid CCA 60.7/9.7 cm/sec. Dist CCA 55.1/11.6 cm/sec. Dist CCA 56/13.5 cm/sec. Prox ICA 51.3/15.4 cm/sec. Prox ICA 37.1/9.7 cm/sec. Mid ICA 58.9/18.2 cm/sec. Mid ICA 62.6/21.1 cm/sec. Dist ICA 59.2/21.1 cm/sec. Dist ICA 51.3/14 cm/sec. Rt. ICA/CCA = 1.06. Lt. ICA/CCA = 1.03. Prox ECA 67.4/6 cm/sec. Prox ECA 61.7/6 cm/sec. Rt. Vert. 41.9/9.7 cm/sec. Lt. Vert. 39.9/9.1 cm/sec. Right Extracranial There is intimal thickening but no significant atherosclerotic plaque noted in the right common carotid artery. There is heterogeneous, smooth atherosclerotic plaque noted in the right internal carotid artery. There is homogeneous, smooth atherosclerotic plaque noted in the right external carotid artery. Antegrade flow is noted in the right vertebral artery. Left Extracranial There is intimal thickening but no significant atherosclerotic plaque noted in the left common carotid artery. There is heterogeneous, irregular atherosclerotic plaque noted in the left internal carotid artery. There is intimal thickening but no significant atherosclerotic plaque noted in the left external carotid artery. Antegrade flow is noted in the left vertebral artery. Procedure Carotid Duplex [id number]. This is a Carotid Duplex examination using B-mode, color flow and specral Doppler. Exam performed in department. VL/Carotid Duplex Ultrasound Interpretation Summary Smooth plaque at the proximal right internal carotid artery with less than 50% stenosis Less than 50% stenosis right external carotid artery Minimal irregular plaque at the proximal left internal carotid artery with less than 50% stenosis Less than 50% stenosis left external carotid artery Patent and antegrade vertebral arteries bilaterally No change from February 26, 2009 Ordering Physician: Ebony De La Cruz Referring Physician: Gelacio Mckeon Performed By: Tanika Worthy RVT
== END | disposition home or self-care (01) ==
PROVIDERS: PCP Family Medicine; Referring Provider Nurse Practitioner Gerontology; Visit Provider Nurse Practitioner Gerontology
DX: R42 Dizziness and giddiness (principal)
CPT/HCPCS: 93880

== ENCOUNTER → 2023-04-05 | Outpatient (CLI) | payer MEDICARE, SELFPAY ==
--- NOTE | 2023-04-05 12:34 | RAD_ITS ---
STUDY: X-RAY CHEST REASON FOR EXAM: Female, 77 years old. PROMINENCE OF L LOWER RIB CAGE TECHNIQUE: Frontal and lateral views of the chest. COMPARISON: None. FINDINGS: The lungs are clear and expanded. There is no demonstrated pleural abnormality. Normal size heart. Normal mediastinum and cullen. Normal visualized pulmonary arteries. Normal visualized aortic arch and descending thoracic aorta. There are diffuse degenerative changes of the visualized thoracic spine. Normal visualized ribs, clavicles, and shoulders. There is no demonstrated abnormality of the visualized soft tissue structures of the upper abdomen. RAD/Chest PA and Lateral IMPRESSION: No definite acute or significant abnormality seen. Electronically Signed: Bunny Garcia MD at 22:55 EDT ,
[2023-04-05 12:49] LABS: Cholesterol 157 mg/dL (200); High Density Lipoprotein 44 mg/dL; Triglycerides 113 mg/dL; Very Low Density Lipoprotein 23 mg/dL (5-40)
[2023-04-10 13:07] LABS: Aldosterone, Serum 6.9 ng/dL (0.0-30.0)
== END | disposition home or self-care (01) ==
PROVIDERS: PCP Family Medicine; Referring Provider Family Medicine; Visit Provider Family Medicine
DX: R53.83 Other fatigue (principal); E26.1 Secondary hyperaldosteronism; E78.5 Hyperlipidemia, unspecified; R73.01 Impaired fasting glucose; R68.89 Other general symptoms and signs
CPT/HCPCS: 36415; 71046; 80061; 82088; 82533; 83036

== ENCOUNTER → 2023-04-25 | Outpatient (CLI) | payer MEDICARE, SELFPAY ==
[2023-04-25 13:05] LABS: Potassium 3.9 mmol/L (3.5-5.1)
== END | disposition home or self-care (01) ==
LOC: LAB.FUTURE 11:15
PROVIDERS: PCP Family Medicine; Referring Provider Family Medicine; Visit Provider Family Medicine
DX: E26.1 Secondary hyperaldosteronism (principal)
CPT/HCPCS: 36415; 84132

== ENCOUNTER → 2023-05-12 | Outpatient (CLI) | payer MEDICARE, SELFPAY ==
[2023-05-12 15:54] LABS: Lipase 33 U/L (13-75)
[2023-05-16 14:09] LABS: Aldosterone, Serum 10.4 ng/dL (0.0-30.0)
== END | disposition home or self-care (01) ==
LOC: BFHLAB 11:21
PROVIDERS: PCP Family Medicine; Visit Provider Family Medicine
DX: R10.9 Unspecified abdominal pain (principal); E26.1 Secondary hyperaldosteronism; R53.83 Other fatigue
CPT/HCPCS: 36415; 82088; 82533; 83690

== ENCOUNTER → 2023-06-19 | Outpatient (CLI) | payer MEDICARE, SELFPAY ==
--- NOTE | 2023-06-19 09:35 | RAD_ITS ---
EXAM: XR RIGHT FOOT COMPLETE, 3 OR MORE VIEWS CLINICAL INDICATION: PAIN TECHNIQUE: Frontal, lateral and oblique views of the right foot. COMPARISON: No relevant prior studies available. FINDINGS: BONES/JOINTS: Small calcaneal spur. No acute fracture. No subluxation. Normal alignment. Preservation of the joint space. No sclerotic or destructive changes observed. SOFT TISSUES: Unremarkable. No soft tissue swelling or gas. No radiopaque foreign body. RAD/Foot min 3 Views IMPRESSION: No acute findings in the right foot. There is a small calcaneal spur. Electronically Signed: Drew Joshua MD at 21:07 EDT ,
--- NOTE | 2023-06-19 09:35 | RAD_ITS ---
EXAM: XR LEFT FOOT COMPLETE, 3 OR MORE VIEWS CLINICAL INDICATION: PAIN TECHNIQUE: Frontal, lateral and oblique views of the left foot. COMPARISON: No relevant prior studies available. FINDINGS: BONES/JOINTS: There is narrowing with minimal sclerosis of the first metatarsal phalangeal joint. No acute fracture. No subluxation. Normal alignment. SOFT TISSUES: Unremarkable. No soft tissue swelling or gas. No radiopaque foreign body. RAD/Foot min 3 Views IMPRESSION: 1. No acute osseous abnormalities. 2. Moderate degenerative change with joint space narrowing and minimal sclerosis of the first metatarsophalangeal joint. Electronically Signed: Drew Joshua MD at 21:06 EDT ,
== END | disposition home or self-care (01) ==
PROVIDERS: PCP Family Medicine; Referring Provider Nurse Practitioner Family; Visit Provider Nurse Practitioner Family
DX: M79.671 Pain in right foot (principal); M79.672 Pain in left foot
CPT/HCPCS: 73630

== ENCOUNTER → 2023-08-24 | Outpatient (CLI) | payer MEDICARE, SELFPAY ==
--- NOTE | 2023-08-24 07:59 | CT_ITS ---
STUDY: CT ABDOMEN AND PELVIS WITHOUT CONTRAST REASON FOR EXAM: Female, 77 years old. 2-3 month history of left upper quadrant pain. No history of injury. RADIATION DOSAGE (If Supplied By Facility): CTDIvol = ( 8.90 ) mGy, DLP = ( 406.10 ) mGycm TECHNIQUE: Transaxial images were obtained from the dome of the diaphragm to the symphysis pubis without oral contrast, and without intravenous contrast. Sagittal and coronal images were reconstructed. Individualized dose optimization techniques were used for this CT. COMPARISON: None. FINDINGS: The visualized lung bases are unremarkable. Coronary artery calcification. Normal liver. Questionable tiny gallstones versus gallbladder polyps. Normal spleen. Normal pancreas. Hyperplasia of the left adrenal gland. Normal right kidney. Normal left kidney. There is a small hiatal hernia. Normal small intestine. Moderate amount of fecal material is seen in the colon. The appendix is visualized and appears normal. There is scattered atherosclerotic calcification of the abdominal aorta and its major visceral branches, without a demonstrated aneurysm. Normal inferior vena cava. Normal retroperitoneum. Normal urinary bladder. Normal abdominal wall. There are diffuse degenerative changes of the visualized lumbar spine. Loss of the normal lumbar lordosis. CT/Abdomen/Pelvis without Cont IMPRESSION: Questionable small gallstones versus polyps. Moderate amount of fecal material is seen in the colon. Electronically Signed: Frank Gray MD at 14:41 EDT ,
== END | disposition home or self-care (01) ==
LOC: CT 07:58
PROVIDERS: PCP Family Medicine; Referring Provider Family Medicine; Visit Provider Family Medicine
DX: R10.12 Left upper quadrant pain (principal)
CPT/HCPCS: 74176

== ENCOUNTER → 2023-09-05 | Outpatient (CLI) | payer MEDICARE, SELFPAY ==
[2023-09-05 15:14] LABS: Absolute Lymphocyte Count 1.67 X10^3/uL (0.83-4.51); Absolute Neutrophil Count 5.2 X10^3/uL (2.0-7.7); Basophil# 0.07 X10^3/uL; Basophil% 0.9 % (0-1); Eosinophil# 0.21 X10^3/uL; Eosinophils% 2.7 % (0-5); Hematocrit 44.8 % (37-47); Lymphocyte # 1.67 X10^3/ul (0.83-4.51); Lymphocyte % 21.3 % (19-41); Mean Corp Hgb Conc 31.3 g/dL (32-36); Mean Corpuscular Hgb 30.4 pg (27.0-32.0); Mean Corpuscular Volume 97.4 fL (81-99); Mean Platelet Vol. 10.7 fl (6.2-12.0); Monocyte# 0.67 X10^3/uL; Monocyte% 8.5 % (0-10); NRBC Flagged by Analyzer 0 % (0-5); Neutrophil # 5.18 X10^3/uL (2.7-7.7); Platelet Count 258 K/mm3 (150-450); RBC Distribution Width CV 13.4 % (11.6-14.6); RBC Distribution Width SD 48.2 fl (35.1-43.9); White Blood Count 7.9 K/mm3 (4.4-11.0)
[2023-09-05 16:03] LABS: ALB/GLOB Ratio 0.9 RATIO (0.9-2.4); AST(SGOT) 16 U/L (15-37); Alanine Aminotransfer ALT/SGPT 37 U/L (13-56); Albumin, Serum 3.5 g/dL (3.2-5.0); Alkaline Phosphatase 68 U/L (45-117); Anion Gap 5 (5-15); BUN 18 mg/dL (7-18); BUN/Creat Ratio 21.2 RATIO (10-20); Calcium,Total 9.2 mg/dL (8.5-10.1); Chloride 109 mmol/L (98-107); Creatinine, Serum 0.85 mg/dL (0.55-1.02); EST Glomerular Filtration Rate 69 mL/min (>60); Est Glom Filt Rate - Afr Amer 84 mL/min (>60); Glucose 92 mg/dL (74-106); Potassium 3.8 mmol/L (3.5-5.1); Protein, Total 7.5 g/dL (6.4-8.2); Sodium Level 141 mmol/L (136-145); T4 Free Direct 1.21 ng/dL (0.76-1.46); Thyroid Stim Hormone (TSH) 1.19 uIU/mL (0.358-3.74)
== END | disposition home or self-care (01) ==
LOC: BFHLAB 11:54
PROVIDERS: PCP Family Medicine; Visit Provider Family Medicine
DX: E03.9 Hypothyroidism, unspecified (principal); I10 Essential (primary) hypertension
CPT/HCPCS: 36415; 80053; 84439; 84443; 85025

== ENCOUNTER → 2023-09-12 | Outpatient (CLI) | payer MEDICARE, SELFPAY ==
--- NOTE | 2023-09-12 08:56 | BI_ITS ---
MAMMOGRAPHY - BILATERAL DIAGNOSTIC REASON FOR EXAM: Female, 77 years old. Tender palpable lump in the left axilla. PERTINENT HISTORY: Grandmother with breast cancer. Remote left excisional breast biopsy. TECHNIQUE: Digital bilateral breast kanwal (3D mammographic acquisition) in the CC and MLO projections. 2-D mediolateral oblique (MLO) and craniocaudad (CC) views of both breasts were obtained. CAD: Full Field Digital Mammography with Computer Added Detection was performed. COMPARISON: Comparison is made with prior study dated November 24, 2022. FINDINGS: Breast Composition: The breasts are heterogeneously dense, which may obscure small masses. There are no dominant masses or suspicious calcifications. No other significant abnormalities are identified. There has been no significant change since the prior study. BI/DIAG MAMM W/CAD, BILAT IMPRESSION: Stable bilateral diagnostic mammogram. With the patient''s history of a palpable left axillary lump, correlation with ultrasound is recommended. ASSESSMENT CATEGORY: BIRADS Category 0: Incomplete. Need additional imaging evaluation. A letter regarding these results will be sent to the patient by the facility within 30 days. Approximately 10% of breast cancers are not detected by mammography. A normal mammogram should not delay biopsy of a clinically suspicious abnormality. Electronically Signed: Frank Gray MD at 11:06 EDT ,
--- NOTE | 2023-09-12 09:53 | US_ITS ---
STUDY: ULTRASOUND BREAST - LEFT REASON FOR EXAM: Female, 77 years old. Left axillary lymph nodes. TECHNIQUE: Axial and longitudinal images of the LEFT breast were performed with a high resolution ultrasound transducer. # OF IMAGES: 13 COMPARISON: Comparison is made with prior mammogram done earlier in the day. FINDINGS: LEFT Breast: Imaging of the left axilla was obtained. 3 benign appearing lymph nodes are seen. The largest measures 1.6 cm x 1 cm x 0.7 cm. US/Breast Limited Unilateral IMPRESSION: 3 benign-appearing lymph nodes are seen in the left axilla. ASSESSMENT CATEGORY: BIRADS Category 2: Benign. A letter regarding these results will be sent to the patient by the facility within 30 days. Electronically Signed: Frank Gray MD at 11:16 EDT ,
== END | disposition home or self-care (01) ==
PROVIDERS: PCP Family Medicine; Referring Provider Nurse Practitioner Family; Visit Provider Nurse Practitioner Family
DX: R59.0 Localized enlarged lymph nodes (principal); R92.8 Other abnormal and inconclusive findings on diagnostic imaging of breast
CPT/HCPCS: 76642; 77062; 77066; G0279

== ENCOUNTER → 2023-12-28 | Outpatient (CLI) | payer MEDICARE, SELFPAY ==
--- NOTE | 2023-12-28 08:20 | US_ITS ---
STUDY: ULTRASOUND BREAST - LEFT REASON FOR EXAM: Female, 78 years old. Left axillary lymph nodes. TECHNIQUE: Axial and longitudinal images of the LEFT breast were performed with a high resolution ultrasound transducer. # OF IMAGES: 32 COMPARISON: Comparison is made with prior study dated September 12, 2023. FINDINGS: LEFT Breast: Imaging of the left axilla was performed. There are 4 benign-appearing left axillary lymph nodes. The largest measures 1.3 cm x 1.1 cm x 1.1 cm. US/Breast Limited Unilateral IMPRESSION: Stable benign-appearing left axillary lymph nodes. ASSESSMENT CATEGORY: BIRADS Category 2: Benign. A letter regarding these results will be sent to the patient by the facility within 30 days. Electronically Signed: Frank Gray MD at 14:55 EST ,
--- OUTSIDE RECORDS SUMMARY | 2023-12-28 08:20 | XMS RPT_ITS | CCD ---
Author Name Unknown Address [address] [place] [address] Organization [facility] Care Team Providers Care Care Specialist Name Role Phone Keira Simpson LPN Unavailable Unavailab Keira Branch LPN Unavailable Unavailab ERASMO Gracia Unavailable Unavailable PHYSICIAN, NONE Unavailable Unavailable KARELY CHAN Unavailable Unavailable Allergies Allergy Classification Reported Allergen(s) Allergy Type Date of Onset Reaction(s) Facility (2 sources) atorvastatin drug allergy 09-10-2013 Myalgias [facility] Work Phone: (2 sources) Contrast media drug allergy 09-10-2013 Syncope,Burning at injection site [facility] Work Phone: (2 sources) lovastatin drug allergy 09-10-2013 Myalgias [facility] Work Phone: (2 sources) rosuvastatin drug allergy 09-10-2013 Myalgias (even with 5mg ) [facility] Work Phone: (2 sources) simvastatin; Translations: [SIMVASTATIN] food allergy 09-10-2013 Myalgias [facility] Work Phone: (4 sources) NKDA drug allergy 09-02-2013 [facility] Work Phone: Medications Completed/Discontinued Medications Medication Drug Class(es) Dates Sig (Normalized) Sig (Original) aspirin 81 mg oral strip (4 sources) Nonsteroidal Anti-inflammatory Drug Start: 09-02-2013 End: 05-09-2017 take 1 tablet by mouth once daily ASPIRIN 81 MG TABS One tablet by mouth daily ASPIRIN [id number] Keira Simpson LPN atorvastatin 10 mg oral tablet (2 sources) HMG-CoA Reductase Inhibitor Start: 09-16-2014 take 1 tablet by mouth once daily LIPITOR 10 MG TABS One tablet by mouth daily ATORVASTATIN CALCIUM [id number] Christo Dunn MD COENZYME Q10 (4 sources) Start: 09-10-2013 take 1 tablet by mouth once daily CO Q-10 100 MG CAPS One tablet by mouth daily COENZYME Q10 [id number] Christo Dunn MD Problems Active Problems Problem Classification Problem Date Documented Da te Episodic/Chronic Cardiac dysrhythmias (2 sources) Ventricular premature beats; Translations: [Ventricular premature depolarization] Onset: 09-02-2013 09-02-2013 Chronic Essential hypertension (2 sources) Hypertensive disorder; Translations: [Essential (primary) hypertension] Onset: 09-02-2013 09-02-2013 Chronic Unclassified (2 sources) History of clinical finding in subject; Translations: [Personal history of other specified conditions] Onset: 09-02-2013 09-02-2013 Past or Other Problems Problem Classification Problem Date Documented Da te Episodic/Chronic Allergic reactions (4 sources) Contact dermatitis due to plants; Translations: [Contact dermatitis due to poison isi] Onset: 05-09-2017 05-09-2017 Episodic Cardiac dysrhythmias (2 sources) Palpitations; Translations: [Palpitations] Onset: 09-02-2013 09-02-2013 Episodic Nonspecific chest pain (2 sources) Precordial pain; Translations: [Precordial pain] Onset: 09-02-2013 09-02-2013 Episodic Other circulatory disease (2 sources) Diastolic dysfunction; Translations: [Other ill-defined heart diseases] Onset: 09-02-2013 09-02-2013 Episodic Other nutritional; endocrine; and metabolic disorders (2 sources) Body mass index (BMI) 27.0-27.9, adult; Translations: [Body mass index (BMI) 27.0-27.9, adult] Onset: 09-10-2013 09-10-2013 Episodic Results Test Name Value Interpretation Reference Range Facil ity Vital Signs Date Time Vital Sign Value Performing Clinician Sony monroe 05-09-2017 13:17-0400 BMI (Body Mass Index) 28.93 kg/m2 Keira Simpson LPN [facility] Work Phone: 05-09-2017 13:17-0400 Body Temperature 98.2 [degF] Keira Simpson LPN [facility] Work Phone: 05-09-2017 13:17-0400 BP Diastolic 88 mm[Hg] Keira Simpson LPN [facility] Work Phone: 05-09-2017 13:17-0400 BP Systolic 130 mm[Hg] Keira Simpson LPN [facility] Work Phone: 05-09-2017 13:17-0400 Height 157.48 cm Keira Simpson LPN [facility] Work Phone: 05-09-2017 13:17-0400 Pulse (Heart Rate) 94 /min Keira Simpson LPN [facility] Work Phone: 05-09-2017 13:17-0400 Pulse Oximetry 97 % Keira Simpson LPN [facility] Work Phone: 05-09-2017 13:17-0400 Respiratory Rate 14 /min Keira Simpson LPN [facility] Work Phone: 05-09-2017 13:17-0400 Weight 71.76 kg Keira Simpson LPN [facility] Work Phone: Encounters Encounter Date Encounter Type Care Provider Facility Start: 07-01-2018 End: 07-01-2018 Patient encounter ERASMO Armando HAIM Facility:A Procedures Date Procedure Procedure Detail Performing Clinician Start: 09-16-2014 End: 09-16-2014 JEET Dunn MD Work Phone: Start: 09-16-2014 End: 09-16-2014 Follow Up Appt 1 year Uma Garza Work Phone: Start: 08-29-2014 End: 08-30-2014 *Microalbumin, Creatine Ratio, rand urine Christo Dunn MD Work Phone: Start: 09-10-2013 End: 09-10-2013 JEET Dunn MD Work Phone: Start: 09-10-2013 End: 09-10-2013 Follow Up Appt 1 year Uma Garza Work Phone: Start: 09-10-2013 End: 09-10-2013 Follow Up Appt Other Christo Dunn MD Work Phone: Start: 09-10-2013 End: 09-20-2013 Stress Echocardiogram (treadmill) Christo Dunn MD Work Phone: Plan of Treatment Date Care Activity Detail Author Start: 05-09-2017 End: 05-09-2017 Appointment Appointment [facility] Work Phone: Start: 09-16-2014 End: 09-16-2014 JEET MARCANO [facility] Work Phone: Start: 09-16-2014 End: 09-16-2014 Follow Up Appt 1 year Follow Up Appt 1 year [facility] Work Phone: Start: 08-29-2014 End: 08-30-2014 *Microalbumin, Creatine Ratio, rand urine *Microalbumin, Creatine Ratio, rand urine [facility] Work Phone: Start: 09-10-2013 End: 09-10-2013 JEET MARCANO [facility] Work Phone: Start: 09-10-2013 End: 09-10-2013 Follow Up Appt 1 year Follow Up Appt 1 year [facility] Work Phone: Start: 09-10-2013 End: 09-10-2013 Follow Up Appt Other Follow Up Appt Other [facility] Work Phone: Start: 09-10-2013 End: 09-10-2013 Stress Echocardiogram (treadmill) Stress Echocardiogram (treadmill) [facility] Work Phone: Patient Education [id number] Work Phone: Payers Date Payer Category Payer Medicare [id number] Summary Purpose Family History No Family History Records Found Advance Directives No Advanced Directives Records Found Additional Source Comments INFORMATION SOURCE (unrecogn ized section and content) FOR RECORDS PERTAINING TO PATIENTS WHO ARE OR HAVE BEEN ENROLLED IN A CHEMICAL DEPENDENCY/SUBSTANCEABUSE PROGRAM, SOME INFORMATION MAY BE OMITTED. This clinical summary was aggregated from multiple sources. Caution should be exercised in using it in the provision of clinical care. This summary normalizes information from multiple sources, and as a consequence, information in this document may materially change the coding, format and clinical context of patient data. In addition, data may be omitted in some cases. CLINICAL DECISIONS SHOULD BE BASED ON THE PRIMARY CLINICAL RECORDS. [employer] [facility]. provides no warranty or guarantee of the accuracy or completeness of information in this document.
[2023-12-28 11:32] LABS: ALB/GLOB Ratio 0.8 RATIO (0.9-2.4); AST(SGOT) 13 U/L (15-37); Alanine Aminotransfer ALT/SGPT 28 U/L (13-56); Albumin, Serum 3.4 g/dL (3.2-5.0); Alkaline Phosphatase 82 U/L (45-117); Anion Gap 3 (5-15); BUN 13 mg/dL (7-18); BUN/Creat Ratio 16.5 RATIO (10-20); Calcium,Total 8.9 mg/dL (8.5-10.1); Chloride 109 mmol/L (98-107); Creatinine, Serum 0.79 mg/dL (0.55-1.02); EST Glomerular Filtration Rate 75 mL/min (>60); Est Glom Filt Rate - Afr Amer 91 mL/min (>60); Globulin 4.2 g/dL (2.2-4.2); Glucose 115 mg/dL (74-106); Magnesium 2.2 mg/dL (1.6-2.6); Potassium 3.9 mmol/L (3.5-5.1); Protein, Total 7.6 g/dL (6.4-8.2); Sodium Level 139 mmol/L (136-145); T4 Free Direct 1.22 ng/dL (0.76-1.46); Thyroid Stim Hormone (TSH) 1.13 uIU/mL (0.358-3.74)
[2023-12-29 10:41] LABS: Hemoglobin A1c 6.3 % (3.8-5.6)
[2024-01-02 17:07] LABS: Aldosterone, Serum 8.2 ng/dL (0.0-30.0)
== END | disposition home or self-care (01) ==
PROVIDERS: PCP Family Medicine; Referring Provider Surgery; Visit Provider Surgery
DX: R25.2 Cramp and spasm (principal); E26.1 Secondary hyperaldosteronism; E03.9 Hypothyroidism, unspecified; R73.01 Impaired fasting glucose; R53.83 Other fatigue; N63.32 Unspecified lump in axillary tail of the left breast; R22.32 Localized swelling, mass and lump, left upper limb
CPT/HCPCS: 36415; 76642; 80053; 82088; 82533; 83036; 83735; 84439; 84443

== ENCOUNTER → 2024-04-09 | Outpatient (CLI) | payer MEDICARE, SELFPAY ==
[2024-04-09 10:21] LABS: Cholesterol 133 mg/dL (200); High Density Lipoprotein 44 mg/dL; Triglycerides 108 mg/dL; Very Low Density Lipoprotein 22 mg/dL (5-40)
[2024-04-09 10:31] LABS: Hemoglobin A1c 6.2 % (3.8-5.6)
== END | disposition home or self-care (01) ==
LOC: MTLAB 07:52
PROVIDERS: PCP Family Medicine; Referring Provider Family Medicine; Visit Provider Family Medicine
DX: E78.5 Hyperlipidemia, unspecified (principal); R73.03 Prediabetes
CPT/HCPCS: 36415; 80061; 83036

== ENCOUNTER → 2024-04-12 | Outpatient (CLI) | payer MEDICARE, SELFPAY ==
[2024-04-12 12:47] LABS: Anion Gap 5 (5-15); BUN 15 mg/dL (7-18); BUN/Creat Ratio 17.4 RATIO (10-20); Calcium,Total 9.2 mg/dL (8.5-10.1); Chloride 109 mmol/L (98-107); Creatinine, Serum 0.86 mg/dL (0.55-1.02); EST Glomerular Filtration Rate 68 mL/min (>60); Est Glom Filt Rate - Afr Amer 82 mL/min (>60); Glucose 104 mg/dL (74-106); Sodium Level 139 mmol/L (136-145)
== END | disposition home or self-care (01) ==
LOC: BFHLAB 10:28
PROVIDERS: PCP Family Medicine; Referring Provider Family Medicine; Visit Provider Family Medicine
DX: E26.1 Secondary hyperaldosteronism (principal)
CPT/HCPCS: 36415; 80048

== ENCOUNTER → 2024-07-18 | Outpatient (CLI) | payer MEDICARE, SELFPAY ==
[2024-07-18 15:17] LABS: Absolute Lymphocyte Count 1.67 X10^3/uL (0.83-4.51); Absolute Neutrophil Count 4.8 X10^3/uL (2.0-7.7); Basophil# 0.07 X10^3/uL; Basophil% 0.9 % (0-1); Eosinophil# 0.28 X10^3/uL; Eosinophils% 3.7 % (0-5); Hematocrit 45.1 % (37-47); Hemoglobin 14.4 g/dL (12.0-15.0); Lymphocyte # 1.67 X10^3/ul (0.83-4.51); Lymphocyte % 22.1 % (19-41); Mean Corp Hgb Conc 31.9 g/dL (32-36); Mean Corpuscular Hgb 30.6 pg (27.0-32.0); Mean Corpuscular Volume 95.8 fL (81-99); Monocyte# 0.72 X10^3/uL; Monocyte% 9.5 % (0-10); NRBC Flagged by Analyzer 0 % (0-5); Neutrophil # 4.81 X10^3/uL (2.7-7.7); Neutrophil % 63.5 % (47-70); Platelet Count 274 K/mm3 (150-450); RBC Distribution Width CV 13.1 % (11.6-14.6); RBC Distribution Width SD 46.5 fl (35.1-43.9); Red Blood Count 4.71 M/mm3 (4.2-5.4); White Blood Count 7.6 K/mm3 (4.4-11.0)
[2024-07-18 16:03] LABS: Anion Gap 3 (5-15); BUN 19 mg/dL (7-18); BUN/Creat Ratio 23.2 RATIO (10-20); Calcium,Total 9.9 mg/dL (8.5-10.1); Chloride 110 mmol/L (98-107); Creatinine, Serum 0.82 mg/dL (0.55-1.02); EST Glomerular Filtration Rate 72 mL/min (>60); Est Glom Filt Rate - Afr Amer 87 mL/min (>60); Glucose 97 mg/dL (74-106); Magnesium 2.4 mg/dL (1.6-2.6); Potassium 3.8 mmol/L (3.5-5.1); Sodium Level 139 mmol/L (136-145)
[2024-07-18 16:11] LABS: Hemoglobin A1c 6.2 % (3.8-5.6)
== END | disposition home or self-care (01) ==
LOC: BFHLAB 13:14
PROVIDERS: PCP Family Medicine; Referring Provider Family Medicine; Visit Provider Family Medicine
DX: E03.9 Hypothyroidism, unspecified (principal); R73.03 Prediabetes; R25.2 Cramp and spasm
CPT/HCPCS: 36415; 80048; 83036; 83735; 84443; 85025

== ENCOUNTER → 2024-12-31 | Outpatient (CLI) | payer MEDICARE, SELFPAY ==
--- NOTE | 2024-12-31 08:36 | BI_ITS ---
PROCEDURE: SCRN MAMM (CAD)W/ROSA BILAT REASON FOR EXAM: F, Age 79 y/o, grandmother with breast cancer. Routine annual follow-up. TECHNIQUE: Bilateral screening digital breast tomosynthesis with 2D and 3D images. Computer aided detection. COMPARISON: Prior exam(s) dating back to September 12, 2023.. FINDINGS: The breasts are heterogeneously dense which may obscure small masses. Stable examination. No suspicious masses, areas of developing architectural distortion, or suspicious calcifications. BI/SCRN MAMM (CAD)W/ROSA BILAT IMPRESSION: BI-RADS 1: NEGATIVE. RECOMMEND ANNUAL MAMMOGRAPHIC SCREENING. Follow-up code: Routine Follow-up The patient will be notified of the results by letter. Reading Location: [id number]
== END | disposition home or self-care (01) ==
PROVIDERS: PCP Family Medicine; Referring Provider Family Medicine; Visit Provider Family Medicine
DX: Z12.31 Encounter for screening mammogram for malignant neoplasm of breast (principal); Z80.3 Family history of malignant neoplasm of breast
CPT/HCPCS: 77063; 77067

== ENCOUNTER → 2025-04-04 | Outpatient (CLI) | payer MEDICARE, SELFPAY ==
[2025-04-04 10:33] LABS: Absolute Lymphocyte Count 1.49 X10^3/uL (0.83-4.51); Absolute Neutrophil Count 3.9 X10^3/uL (2.0-7.7); Basophil# 0.08 X10^3/uL; Basophil% 1.2 % (0-1); Eosinophil# 0.26 X10^3/uL; Eosinophils% 4.1 % (0-5); Hematocrit 44.2 % (37-47); Hemoglobin 14.6 g/dL (12.0-15.0); Lymphocyte # 1.49 X10^3/ul (0.83-4.51); Lymphocyte % 23.2 % (19-41); Mean Corpuscular Hgb 31.1 pg (27.0-32.0); Mean Platelet Vol. 10.9 fl (6.2-12.0); Monocyte# 0.62 X10^3/uL; Monocyte% 9.7 % (0-10); NRBC Flagged by Analyzer 0 % (0-5); Neutrophil # 3.94 X10^3/uL (2.7-7.7); Neutrophil % 61.5 % (47-70); Platelet Count 263 K/mm3 (150-450); RBC Distribution Width CV 12.8 % (11.6-14.6); RBC Distribution Width SD 43.8 fl (35.1-43.9); White Blood Count 6.4 K/mm3 (4.4-11.0)
[2025-04-04 11:06] LABS: Hemoglobin A1c 6.7 % (<=5.6)
[2025-04-04 11:15] LABS: ALB/GLOB Ratio 1.3 RATIO (0.9-2.4); AST(SGOT) 19 U/L (<=31); Alanine Aminotransfer ALT/SGPT 23 U/L (<=34); Albumin, Serum 4.1 g/dL (3.4-4.8); Alkaline Phosphatase 76 U/L (35-104); Anion Gap 11 (5-15); BUN 17 mg/dL (4-19); BUN/Creat Ratio 19.5 RATIO (10-20); Calcium,Total 9.4 mg/dL (7.6-11.0); Chloride 104 mmol/L (98-108); Cholesterol 164 mg/dL (<=200); Creatinine, Serum 0.89 mg/dL (0.70-1.20); EST Glomerular Filtration Rate 67 (>60); Globulin 3.3 g/dL (2.2-4.2); Glucose 119 mg/dL (70-99); High Density Lipoprotein 41 mg/dL; Low Density Lipoprotein Calc. 97 mg/dL; Magnesium 2.2 mg/dL (1.5-2.2); Protein, Total 7.4 g/dL (5.9-8.4); Sodium Level 138 mmol/L (133-145); Total Bilirubin 0.48 mg/dL (0.00-1.30); Triglycerides 134 mg/dL; Very Low Density Lipoprotein 27 mg/dL (5-40); cholesterol:hdl ratio screen 4.03
[2025-04-04 11:53] LABS: Microalbumin,Random Urine < 12.0 mg/L (NO RANGE EST.); Microalbumin:Creatinine Ratio UNABLE TO CALCULATE mg/g CRE
== END | disposition home or self-care (01) ==
LOC: MTLAB 08:20
PROVIDERS: PCP Family Medicine; Referring Provider Family Medicine; Visit Provider Family Medicine
DX: E11.9 Type 2 diabetes mellitus without complications (principal); E26.1 Secondary hyperaldosteronism; E78.5 Hyperlipidemia, unspecified; E03.9 Hypothyroidism, unspecified; E83.42 Hypomagnesemia
CPT/HCPCS: 36415; 80053; 80061; 82043; 82570; 83036; 83735; 84443; 85025

== ENCOUNTER → 2025-06-24 | Outpatient (CLI) | payer MEDICARE, SELFPAY ==
--- NOTE | 2025-06-24 06:23 | ECHOD_ITS ---
Reason For Study Reason For Study: Chest Pain Procedure This was a 2D Doppler, Color Flow transthoracic echocardiogram. Exam performed in department. Left Ventricle Normal LV size. Left ventricular systolic function is normal. The left ventricular ejection fraction is 60 %. No regional wall motion abnormalities noted. Right Ventricle Normal RV size. Normal systolic function. Atria Normal left atrium. Normal right atrium. Mitral Valve Chordal systolic anterior motion of the mitral valve. Mild (1+) eccentric mitral valve insufficiency. Tricuspid Valve Normal tricuspid valve. Mild (1+) tricuspid valve insufficiency. Pulmonary artery systolic pressure is 22 mmHg. Aortic Valve Trisinus/trileaflet aortic valve. Mild (1+) eccentric aortic valve insufficiency. Pulmonic Valve Normal pulmonic valve. Great Vessels Normal aortic root. The pulmonary artery is normal size. Inferior vena cava collapse with respiration. Pericardium/Pleural No pericardial effusion. MMode/2D Measurements & Calculations LVIDd: 4.4 cm IVSd: 0.99 cm Ao root diam: 3.5 cm LVIDs: 2.9 cm LVPWd: 0.76 cm RVDd: 2.7 cm FS: 35.7 % LAV(MOD-bp): 36.6 ml LVAd ap4: 22.1 cm2 SV(MOD-sp4): 38.1 ml LAV(MOD-bp) Indexed: 21.3 ml/m2 LVLd ap4: 6.9 cm SI(MOD-sp4): 22.2 ml/m2 LAV(MOD-sp2): 42.1 ml EDV(MOD-sp4): 59.4 ml LAV(MOD-sp4): 28.3 ml EDV(sp4-el): 60.2 ml LVAs ap4: 11.8 cm2 LVLs ap4: 5.7 cm ESV(MOD-sp4): 21.3 ml ESV(sp4-el): 20.7 ml EF(MOD-sp4): 64.2 % EF(sp4-el): 65.6 % SV(sp4-el): 39.5 ml LA A4 area: 12.3 cm2 LA dimension(2D): 3.8 cm RA A4 area: 6.3 cm2 TAPSE: 1.9 cm Time Measurements MV dec time: 0.24 sec Doppler Measurements & Calculations MV E max adis: 52.4 cm/sec Lat Peak E' Adis: 5.7 cm/sec Med Peak E' Adis: 5.0 cm/sec MV A max adis: 100.2 cm/sec E/E' lat: 9.1 E/E' med: 10.5 MV E/A: 0.52 Ao V2 max: 119.3 cm/sec AI max adis: 335.8 cm/sec MV dec slope: 222.6 cm/sec2 Ao max P.7 mmHg AI max P.1 mmHg Ao V2 mean: 91.6 cm/sec Ao mean P.6 mmHg AI dec slope: 143.3 cm/sec2 Ao V2 VTI: 28.5 cm AI P1/2t: 686.5 msec AV (velocity ratio): 0.75 LV V1 max: 91.6 cm/sec PA V2 max: 101.2 cm/sec PI end-d adis: 91.6 cm/sec LV V1 max P.4 mmHg LV V1 mean P.6 mmHg LV V1 mean: 59.0 cm/sec LV V1 VTI: 21.2 cm TR max adis: 213.2 cm/sec TR max P.2 mmHg ECHO/Echo Complete Interpretation Summary Normal LV size. Left ventricular systolic function is normal. The left ventricular ejection fraction is 60 %. Chordal systolic anterior motion of the mitral valve versus redundant prolapsin g chord. Mild (1+) eccentric mitral valve insufficiency. Ordering Physician: Corky Wayne Referring Physician: Gelacio Mckeon Performed By: Jessica Mckeon, ROLY, RVT
--- OUTSIDE RECORDS SUMMARY | 2025-06-24 06:24 | XMS RPT_ITS | CCD ---
Author Organization [facility] CliniSyvt Care Team Providers Care Skills Trainer Name Role Phone Calvin LACEY, Keira Dawkins Unavailable Unavailab le Keira Simpson LPN Unavailable Unavailab ERASMO Gracia Unavailable Unavailable PHYSICIAN, NONE Unavailable Unavailable KARELY CHAN Unavailable Unavailable Dr. Gelacio Mckeon Primary Care Provider [phone] Dr. Gelacio Mckeon Referring Provider Dr. Gelacio Mckeon Other Provider [phone] Dr. Todd Sunshine Attending Provider Dr. Gelacio Mckeon Primary Care Provider [phone] Dr. Gelacio Mckeon Referring Provider Jono BOONE, OUTCOME ANALYST-C Ebony Attending Provider Dr. Phill Arndt Attending Provider [phone] Jono OUTCOME ANALYST, OUTCOME ANALYST-C Ebony Referring Provider Dr. Gelacio Mckeon Primary Care Provider [phone] Gelacio Mckeon Referring Provider Dr. Jaqueline Loera Attending Provider Dr. Marine Mcintosh MD Primary Care Provider Dr. Gelacio Mckeon DO Attending Provider [phone] Dr. Gelacio Mckeon DO Referring Provider [phone] Dr. Marine Mcintosh MD Primary Care Provider Dr. Gelacio Mckeon DO Attending Provider [phone] Dr. Gelacio Mckeon DO Referring Provider Dr. Marine Mcintosh MD Referring Provider Dr. Karely Wayne MD Attending Provider Dr. Gelacio Mckeon DO Primary Care Provider Gelacio Mckeon Attending Unavailable Gelacio Mckeon Referring Unavailable Marine Mcintosh Primary Care Unavailable Marine Mcintosh Attending Unavailable Marine Mcintosh Referring Unavailable Marine Mcintosh Primary Care Unavailable Karely Wayne Attending Unavailable Karely Wayne Referring Unavailable Gelacio Mckeon Primary Care Unavailable Karely Wayne Attending Unavailable Marine Mcintosh Referring Unavailable Gelacio Mckeon Primary Care Unavailable Gelacio Mckeon Attending Unavailable Marine Mcintosh Primary Care Unavailable Gelacio Mckeon Referring Unavailable Allergies Allergy Classification Reported Allergen(s) Allergy Type Date of Onset Reaction(s) Facility (2 sources) atorvastatin drug allergy 3 Myalgias [facility] Work Phone: (2 sources) Contrast media drug allergy 3 Syncope,Burning at injection site [facility] Work Phone: (17 sources) lovastatin; Translations: [lovastatin] drug allergy 3 Myalgias [facility] Work Phone: (2 sources) rosuvastatin drug allergy 3 Myalgias (even with 5mg ) [facility] Work Phone: (17 sources) simvastatin; Translations: [SIMVASTATIN] food allergy 3 Myalgias [facility] Work Phone: (4 sources) NKDA drug allergy 3 [facility] Work Phone: (14 sources) atorvastatin Drug Allergy 1 Myalgias with higher doses, ok on 10 mg [facility] (14 sources) rosuvastatin Drug Allergy 1 Mylagias [facility] (15 sources) Iodinated Contrast Media; Translations: [Iodinated Contrast Media] Allergy to substance 1 Unknown [facility] (1 source) atorvastatin Drug Allergy 5 [facility] Repository (1 source) rosuvastatin Drug Allergy 5 [facility] Repository Medications Current Medications Medication Drug Class(es) Dates Sig (Normalized) Sig (Original) aspirin 81 mg delayed release oral tablet (20 sources) Nonsteroidal Anti-inflammatory Drug Start: 09-27-2018 take 1 tablet by mouth once daily Aspirin (Adult Aspirin Regimen) 81 mg tablet,delayed release (DR/EC) Active 81 mg PO DAILY September 27, 2018 1:00am Start: 06-13-2014 End: 09-26-2018 take 1 tablet by mouth once daily Aspirin 81 MG tablet,chewable Discontinued 81 mg PO DAILY@0800 June 13, 2014 12:00am September 26, 2018 5:01pm Start: 09-02-2013 End: 05-09-2017 take 1 tablet by mouth once daily ASPIRIN 81 MG TABS One tablet by mouth daily ASPIRIN [id number] Keira Simpson LPN atorvastatin 10 mg oral tablet (16 sources) HMG-CoA Reductase Inhibitor Start: 09-26-2018 take 1 tablet by mouth once daily Atorvastatin 10 mg tablet Active 10 mg PO DAILY September 26, 2018 1:00am Start: 09-16-2014 take 1 tablet by raudel th once daily LIPITOR 10 MG TABS One tablet by mouth daily ATORVASTATIN CALCIUM [id number] Christo Dunn MD 24 hr metoprolol succinate 25 mg extended release oral tablet (20 sources) beta-Adrenergic Shanta Start: 05-27-2025 take 2 tablets by mouth once daily Metoprolol Succinate 25 mg tablet extended release 24 hr Active 12.5 mg PO daily May 27, 2025 8:20am Start: 04-11-2019 End: 05-27-2025 take 2 tablets by mouth twice daily Metoprolol Succinate 25 mg tablet extended release 24 hr Discontinued 12.5 mg PO TWICE A DAY April 11, 2019 1:59pm May 27, 2025 8:21am Start: 04-11-2019 take 12.5 mg by mout h twice daily Metoprolol Succinate Active 12.5 MG PO TWICE A DAY April 11, 2019 12:59pm Start: 11-07-2018 End: 04-11-2019 take 1 tablet by mouth once daily Metoprolol Succinate 25 mg tablet extended release 24 hr Discontinued 25 mg PO DAILY November 07, 2018 6:47pm April 11, 2019 1:59pm Start: 10-22-2018 End: 11-07-2018 take 2 tablets by mouth once daily Metoprolol Succinate 25 mg tablet extended release 24 hr Discontinued 12.5 mg PO DAILY October 22, 2018 12:10pm November 07, 2018 6:47pm Start: 10-22-2018 End: 11-07-2018 take 12.5 mg by mouth once daily Metoprolol Succinate Discontinued 12.5 MG PO DAILY October 22, 2018 11:10am November 07, 2018 5:47pm Start: 09-27-2018 End: 10-22-2018 take 0.5 tablet by mouth once daily Metoprolol Succinate 25 mg tablet extended release 24 hr Discontinued 25 mg PO .COMPLEX September 27, 2018 2:30pm October 22, 2018 12:11pm 25 mg PO 0.5 tablet daily; Start: 09-26-2018 End: 09-27-2018 take 1 tablet by mouth once daily Metoprolol Succinate 25 mg tablet extended release 24 hr Discontinued 25 mg PO DAILY September 26, 2018 1:00am September 27, 2018 2:32pm Start: 09-16-2014 TOPROL XL 25 M G [id number] 1 and 1/2 tablet by mouth daily METOPROLOL SUCCINATE [id number] Christo Dunn MD Start: 06-13-2014 End: 09-27-2018 take 1 tablet by mouth once daily Metoprolol Succinate 50 MG tablet Discontinued 50 mg PO DAILY 30 0 June 13, 2014 12:00am September 27, 2018 2:32pm Start: 06-12-2014 End: 06-13-2014 take 1 tablet by mouth once daily Metoprolol Succinate 25 MG Tab.Er.24h Discontinued 25 mg PO DAILY June 12, 2014 12:00am June 13, 2014 12:36pm Start: 09-10-2013 End: 10-10-2013 take 1 tablet by mouth once daily TOPROL XL 25 MG [id number] One tablet by mouth daily METOPROLOL SUCCINATE [id number] Christo Dunn MD spironolactone 25 mg oral tablet (20 sources) Aldosterone Antagonist Start: 10-10-2019 Spironolactone 25 mg tablet Active 12.5 mg PO DAILY October 10, 2019 2:29pm Start: 10-10-2019 take 12.5 mg by mout h once daily Spironolactone Active 12.5 MG PO DAILY October 10, 2019 1:29pm Start: 09-10-2013 End: 10-10-2019 take 1 tablet by mouth once daily Spironolactone 25 MG tablet Discontinued 25 mg PO DAILY June 12, 2014 12:00am October 10, 2019 2:30pm levothyroxine sodium 0.05 mg oral tablet (16 sources) l-Thyroxine Start: 09-26-2018 take 1 tablet by mouth once daily Levothyroxine 50 mcg tablet Active 50 ug PO DAILY September 26, 2018 1:00am Start: 05-09-2017 LEVOTHYROXINE SODIUM TABS as directed LEVOTHYROXINE SODIUM TABS [id number] Keira Simpson LPN Completed/Discontinued Medications Medication Drug Class(es) Dates Sig (Normalized) Sig (Original) COENZYME Q10 (4 sources) Start: 09-10-2013 take 1 tablet by mouth once daily CO Q-10 100 MG CAPS One tablet by mouth daily COENZYME Q10 [id number] Christo Dunn MD Start: 09-10-2013 End: 09-16-2014 take 1 tablet by mouth once daily CO Q-10 100 MG CAPS One tablet by mouth daily COENZYME Q10 [id number] Christo Dunn MD doxepin hydrochloride 10 mg oral capsule (4 sources) Tricyclic Antidepressant Start: 03-20-2024 End: 05-27-2025 take 3 mg by mouth once daily Doxepin 10 mg capsule Discontinued 3 mg PO DAILY March 20, 2024 8:36am May 27, 2025 8:21am Start: 03-20-2024 End: 03-20-2024 take 6 mg by mouth once daily Doxepin 10 mg capsule Di scontinued 6 mg PO DAILY March 20, 2024 12:00am March 20, 2024 8:36am ezetimibe 10 mg oral tablet (18 sources) Dietary Cholesterol Absorption Inhibitor Start: 06-12-2014 End: 09-26-2018 take 1 tablet by mouth once daily Ezetimibe 10 MG tablet Discontinued 10 mg PO DAILY June 12, 2014 12:00am September 26, 2018 5:01pm fish oil (4 sources) Start: 09-10-2013 End: 05-09-2017 take 1 tablet by mouth twice daily FISH OIL CAPS One tablet by mouth twice daily OMEGA-3 FATTY ACIDS CAPS [id number] Keira Simpson LPN Start: 09-10-2013 take 1 tablet by raudel th twice daily FISH OIL CAPS One tablet by mouth twice daily OMEGA-3 FATTY ACIDS CAPS [id number] Christo Dunn MD magnesium oxide 400 mg oral tablet (18 sources) Start: 06-13-2014 End: 09-27-2018 take 1 tablet by mouth once daily Magnesium Oxide 400 MG tablet Discontinued 400 mg PO DAILY 30 0 June 13, 2014 12:00am September 27, 2018 2:32pm MULTIPLE VITAMIN (4 sources) Start: 09-10-2013 take 1 tablet by mouth once daily MULTIVITAMINS TABS One tablet by mouth daily MULTIPLE VITAMIN Christo Dunn MD Start: 09-10-2013 End: 05-09-2017 take 1 tablet by mouth once daily MULTIVITAMINS TABS One tablet by mouth daily MULTIPLE VITAMIN Keira Simpson LPN Multivitamin With Folic Acid (12 sources) Start: 06-13-2014 End: 09-26-2018 take 1 tablet by mouth once daily Multivitamin With Folic Acid Discontinued 1 TABLET PO DAILY June 13, 2014 1:57am September 26, 2018 5:01pm Start: 06-13-2014 End: 09-26-2018 take 1 tablet by mouth once daily Multivitamin With Folic Acid Discontinued 1 TABLET PO DAILY June 13, 2014 12:00am September 26, 2018 5:01pm Start: 06-13-2014 End: 09-26-2018 take 1 tablet by mouth once daily Multivitamin With Folic Acid Discontinued 1 TABLET PO DAILY June 12, 2014 11:00pm September 26, 2018 4:01pm Multivitamin With Folic Acid 1 TABLET tablet (2 sources) Start: 06-13-2014 End: 09-26-2018 take 1 tablet by mouth once daily Multivitamin With Folic Acid 1 TABLET tablet Discontinued 1 {tbl} PO DAILY June 13, 2014 12:00am September 26, 2018 5:01pm omeprazole 20 mg delayed release oral capsule (4 sources) Proton Pump Inhibitor Start: 09-02-2013 End: 09-16-2014 take 1 tablet by mouth once daily OMEPRAZOLE 20 MG CPDR One tablet by mouth daily OMEPRAZOLE [id number] Christo Dunn MD predniSONE 10 mg oral tablet (2 sources) Corticosteroid Start: 05-09-2017 End: 05-21-2017 PREDNISONE 10 MG TABS 4 tablets daily for 3 days, then 3 tablest daily for 3 days, then 2 tablets daily for 3 days, then 1 tablet daily for 3 days. PREDNISONE [id number] Shawn PORTER traZODone hydrochloride 50 mg oral tablet (18 sources) Serotonin Reuptake Inhibitor Start: 06-13-2014 End: 09-27-2018 take 1-2 tablets by mouth once at bedtime Trazodone 50 MG tablet Discontinued 50 mg PO AT BEDTIME 40 0 June 13, 2014 12:00am September 27, 2018 2:32pm 1-2 tablets every bedtime for insomnia Problems Active Problems Problem Classification Problem Date Documented Date Episodic/Chronic Cardiac dysrhythmias (2 sources) Ventricular premature beats; Translations: [Ventricular premature depolarization] Onset: 09-02-2013 09-02-2013 Chronic Cardiac dysrhythmias (20 sources) Palpitations; Translations: [Palpitations] Onset: 09-02-2013 09-02-2013 Episodic Conditions associated with dizziness or vertigo (20 sources) Dizziness; Translations: [Dizziness and giddiness] 09-26-2018 Episodic Diabetes mellitus without complication (1 source) Type 2 diabetes mellitus without complications; Translations: [Type 2 diabetes mellitus without complications] Onset: 04-09-2025 Chronic Disorders of lipid metabolism (18 sources) Hyperlipidemia; Translations: [Hyperlipidemia, unspecified] 09-26-2018 Chronic Essential hypertension (20 sources) Hypertensive disorder; Translations: [Essential hypertension] Onset: 09-02-2013 09-02-2013 Chronic Fluid and electrolyte disorders (14 sources) Hypokalemia; Translations: [Hypokalemia] 04-11-2019 Episodic Nonspecific chest pain (6 sources) Precordial pain; Translations: [Chest pain] Onset: 09-02-2013 09-02-2013 Episodic Other connective tissue disease (3 sources) Localized swelling of left upper limb; Translations: [Other specified soft tissue disorders] 12-14-2023 Episodic Other connective tissue disease (1 source) Other specified soft tissue disorders; Translations: [Swelling of limb] 12-14-2023 Episodic Other screening for suspected conditions (not mental disorders or infectious disease) (17 sources) Electrocardiogram abnormal; Translations: [Abnormal electrocardiogram [ECG] [EKG]] Onset: 01-14-2025 09-27-2018 Episodic Other skin disorders (3 sources) Localized swelling, mass and lump, left upper limb; Translations: [Mass of left axilla] 12-14-2023 Episodic Syncope (14 sources) Near syncope; Translations: [Syncope and collapse] 04-11-2019 Episodic Thyroid disorders (15 sources) Hypothyroidism; Translations: [Hypothyroidism, unspecified] Onset: 07-20-2024 09-26-2018 Chronic Unclassified (2 sources) History of clinical finding in subject; Translations: [Personal history of other specified conditions] Onset: 09-02-2013 09-02-2013 Past or Other Problems Problem Classification Problem Date Documented Date Episodic/Chronic Allergic reactions (4 sources) Contact dermatitis due to plants; Translations: [Contact dermatitis due to poison isi] Onset: 05-09-2017 05-09-2017 Episodic Other circulatory disease (2 sources) Diastolic dysfunction; Translations: [Other ill-defined heart diseases] Onset: 09-02-2013 09-02-2013 Episodic Other nutritional; endocrine; and metabolic disorders (2 sources) Body mass index (BMI) 27.0-27.9, adult; Translations: [Body mass index (BMI) 27.0-27.9, adult] Onset: 09-10-2013 09-10-2013 Episodic Residual codes; unclassified (14 sources) History of cardiac catheterization; Translations: [Other specified postprocedural states] Onset: 05-05-2008 04-08-2019 Episodic Comment on above: Per Dr. Scanlon @ [facility]: Normal coronaries, EF 70%. Results Test Name Value Interpretation Reference Range Facility Cardiology Visit Reporton Cardiology Visit Report [facility] [address] [place] [address] OFFICE VISIT Date of Service: 05/27/25 MR#: [id number] Acct: [id number] Name: ANDREY TAY Rep #: [id number] : 1945 Provider: Dr. Karely paez MD Age/Sex: 79/F Location: [facility] [place] Status: Signed HPI HPI History of Present Illness Details: Patient is a 79-year-old white female that comes today for monitoring of her cardiovascular status. Patient reports that she has developed bilateral lower chest discomfort that wraps around her lower rib cage and is associated with palpitations and lightheadedness. She is not fallen she has not had any syncopal spells. This tends to occur when she is sitting or standing and in the house. She denies it ever happening when she was up and active out in the yard or exerting herself. The patient denies ever having this while she was driving. Patient carries a history of a wide-complex tachycardia remotely she was evaluated actually had a remote catheterization which showed normal coronary arteries she had an echocardiogram in 2018 which showed an EF of 65% with normal LV function normal right ventricular function and pressures. This is unchanged from a previous echo in 2012. The patient had a stress test March 2022 which was pharmacologic nuclear stress test that showed normal LV function and no evidence of ischemia. The patient's resting ECG in the office today shows normal sinus rhythm at 66 bpm left axis deviation old inferior and anterior infarct patterns. This is similar to the ECG that was done September 2018 and subsequently she was shown to have normal LV function. The patient denies any significant PND orthopnea she denies any lower extremity edema. She reports that the symptoms happen about once a month they are not predictable. Intake Vital Signs 03/20/24 08:13 05/27/25 08:19 Height 5 ft 3 in 5 ft 3 in Weight: 151 lb BMI 26.7 BP 164/86 H Blood Pressure Location Lt brachial Position Sitting Respiration 16 Pulse 75 Pulse Source Monitor Intake Visit Reasons: 1 Y FU [employer] Required: No Accompanied by: Self Is patient in pain?: No Allergies Iodinated Contrast Media Allergy (Verified 05/27/25 08:20) Unknown atorvastatin (From Lipitor) Adverse Reaction (Severe, Verified 05/27/25 08:20) Myalgias with higher doses, ok on 10 mg lovastatin Adverse Reaction (Severe, Verified 05/27/25 08:20) Myalgias rosuvastatin (From Crestor) Adverse Reaction (Severe, Verified 05/27/25 08:20) Mylagias simvastatin Adverse Reaction (Severe, Verified 05/27/25 08:20) Myalgias Medications ???Medication ???Instructions ???Recorded ???Confirmed ???Type atorvastatin 10 mg tablet 10 mg PO DAILY 09/26/18 05/27/25 H istory levothyroxine 50 mcg tablet 50 mcg PO DAILY 09/26/18 05/27/25 History aspirin 81 mg tablet,delayed 81 mg PO DAILY 09/27/18 05/27/25 H istory release (Adult Aspirin Regimen) spironolactone 25 mg tablet 12.5 mg PO DAILY 10/10/19 05/27/25 History metoprolol succinate 25 mg 12.5 mg PO QDAY 05/27/25 05/27/25 History tablet,extended release 24 hr Ejection fraction %: 65 Have you fallen in the past year?: No PFSH Medical History Essential hypertension Near syncope Abnormal EKG Palpitations Hypokalemia Hypothyroidism Hyperlipidemia Surgical History History of detached retina repair ( 06/2018) History of left heart catheterization (05/05/08) History of tubal ligation History of lumpectomy of left breast Family History Father Diabetes Mother Hypertension CVA (cerebral vascular accident) Grandfather Heart disease Brother Cancer Alcoholism Grandmother Breast cancer Social History Smoking Status: Never smoker alcohol intake: never substance use type: does not use caffeine: No ROS Const Const: Positive for weakness (BLE); Negative for fatigue, fever(s), headache(s), chills, frequent falls, weight gain or weight loss Eyes Eyes: Positive for blurry vision and other (watery or dry); Negative for blind spots, loss of peripheral vision, transient loss of vision, change in vision, double vision, floaters or tunnel vision ENT ENT: Positive for dizziness (occasional) and balance problems; Negative for headache(s), Nosebleed/epistaxis or neck pain Cardio Chest Pain: Yes Frequency: monthly Character: dull Location: other (B/L lower chest and around back) Duration: brief Palpitations: Yes (once monthly) feels like its: fast and irregular Edema: None Muscle aches with walking: None Re (more content not included)... Normal [facility] Absolute lymphocyte countOrd ered By: Gelacio Mckeon on 04-04-2025 Lymphocytes Auto (Unsp spec) [#/Vol] 1.49 10*3/uL 0.83-4.51 [facility] Absolute neutrophil countOrd ered By: Gelacio Mckeon on 04-04-2025 Neutrophils (Bld) [#/Vol] 3.9 10*3/uL 2.0-7.7 [facility] Anion gap in Serum or Plasma Ordered By: Gelacio Mckeon on 04-04-2025 Anion gap [Moles/Vol] 11 mmol/L - [facility] Automated lymphocyte count a s percentage of total leukocytesOrdered By: Gelacio Mckeon on 04-04-2025 Lymphocytes/100 WBC Auto (Unsp spec) 23.2 % - [facility] BUN/creatinine ratioOrdered By: Gelacio Mckeon on 04-04-2025 Urea nitrogen/Creatinine [Mass ratio] 19.5 mg/mg 10- [facility] Basophil percentageOrdered B y: Gelacio Mckeon on 04-04-2025 Basophils/100 WBC (Bld) 1.2 % High 0-1 [facility] Bilirubin, totalOrdered By: Gelacio Mckeon on 04-04-2025 Bilirubin [Mass/Vol] 0.48 mg/dL 0.00-1.30 [facility] CBC W/Diff, Automatedon 03-20 Absolute Lymph 1.49 X10 3/uL Normal 0.83-4.51 [facility] Comment on above: Performed By: #### L 501.5200, L501.9520, L100.0100, L500.4100, L500.4050, L501.9985, L502.0250 #### [facility] Laboratory [facility] [address] [facility] [place], [place], [id number] Absolute Neut 3.9 X10 3/uL Normal 2.0-7.7 [facility] Comment on above: Performed By: #### L 501.5200, L501.9520, L100.0100, L500.4100, L500.4050, L501.9985, L502.0250 #### [facility] Laboratory [address] [place], [address] Basophils/100 WBC (Bld) 1.2 % High 0-1 [facility] Comment on above: Performed By: #### L 501.5200, L501.9520, L100.0100, L500.4100, L500.4050, L501.9985, L502.0250 #### [facility] [address] [place], [address] Eosinophils/100 WBC (Bld) 4.1 % Normal 0-5 [facility] Comment on above: Performed By: #### L 501.5200, L501.9520, L100.0100, L500.4100, L500.4050, L501.9985, L502.0250 #### [facility] [address] [place], [address] Erythrocyte distribution width (RBC) [Ratio] 12.8 % Normal 11.6-14.6 [facility] Comment on above: Performed By: #### L 501.5200, L501.9520, L100.0100, L500.4100, L500.4050, L501.9985, L502.0250 #### [facility] [address] [place], [address] Hematocrit (Bld) [Volume fraction] 44.2 % Normal 37-47 [facility] Comment on above: Performed By: #### L 501.5200, L501.9520, L100.0100, L500.4100, L500.4050, L501.9985, L502.0250 #### [facility] [address] [place], [address] Hemoglobin (Bld) [Mass/Vol] 14.6 g/dL Normal 12.0-15.0 [facility] Comment on above: Performed By: #### L 501.5200, L501.9520, L100.0100, L500.4100, L500.4050, L501.9985, L502.0250 #### [facility] [address] [place], [address] IG% 0.300 Normal 0.0-0.9 [facility] Comment on above: Result Comment: IG% - Immature Granulocytes (promyelocytes, myelocytes and metamyelocytes) > 1% indicates that a LEFT SHIFT is Present. Performed By: #### L 501.5200, L501.9520, L100.0100, L500.4100, L500.4050, L501.9985, L502.0250 #### [facility] [address] [place], [address] Lymphocytes/100 WBC (Bld) 23.2 % Normal 19-41 [facility] Comment on above: Performed By: #### L 501.5200, L501.9520, L100.0100, L500.4100, L500.4050, L501.9985, L502.0250 #### [facility] [address] [place], [address] MCH (RBC) [Entitic mass] 31.1 pg Normal 27.0-32.0 [facility] Comment on above: Performed By: #### L 501.5200, L501.9520, L100.0100, L500.4100, L500.4050, L501.9985, L502.0250 #### [facility] [address] [place], [address] MCHC (RBC) [Mass/Vol] 33.0 g/dL Normal 32-36 [facility] Comment on above: Performed By: #### L 501.5200, L501.9520, L100.0100, L500.4100, L500.4050, L501.9985, L502.0250 #### [facility] [address], [address] MCV (RBC) [Entitic vol] 94.0 fL Normal 81-99 [facility] Comment on above: Performed By: #### L 501.5200, L501.9520, L100.0100, L500.4100, L500.4050, L501.9985, L502.0250 #### [facility] [address] [place], [address] Monocytes/100 WBC (Bld) 9.7 % Normal 0-10 [facility] Comment on above: Performed By: #### L 501.5200, L501.9520, L100.0100, L500.4100, L500.4050, L501.9985, L502.0250 #### [facility] [address] [place], [address] Neutrophils/100 WBC (Bld) 61.5 % Normal 47-70 [facility] Comment on above: Performed By: #### L 501.5200, L501.9520, L100.0100, L500.4100, L500.4050, L501.9985, L502.0250 #### [facility] [address] [place], [address] Nucleated RBC (Bld) [#/Vol] 0 10*3/uL Normal 0-5 [facility] Comment on above: Performed By: #### L 501.5200, L501.9520, L100.0100, L500.4100, L500.4050, L501.9985, L502.0250 #### [facility] [address] [place], [address] Platelet mean volume (Bld) [Entitic vol] 10.9 fL Normal 6.2-12.0 [facility] Comment on above: Performed By: #### L 501.5200, L501.9520, L100.0100, L500.4100, L500.4050, L501.9985, L502.0250 #### [facility] [address] [place], [address] Platelets (Bld) [#/Vol] 263 10*3/uL Normal 150-450 [facility] Comment on above: Performed By: #### L 501.5200, L501.9520, L100.0100, L500.4100, L500.4050, L501.9985, L502.0250 #### [facility] [address] [place], [address] RBC (Bld) [#/Vol] 4.70 10*6/uL Normal 4.2-5.4 [facility] Comment on above: Performed By: #### L 501.5200, L501.9520, L100.0100, L500.4100, L500.4050, L501.9985, L502.0250 #### [facility] [address] [place], [address] RDW SD 43.8 fl Normal 35.1-43.9 [facility] Comment on above: Performed By: #### L 501.5200, L501.9520, L100.0100, L500.4100, L500.4050, L501.9985, L502.0250 #### [facility] [address] [place], [address] WBC (Bld) [#/Vol] 6.4 10*3/uL Normal 4.4-11.0 [facility] Comment on above: Performed By: #### L 501.5200, L501.9520, L100.0100, L500.4100, L500.4050, L501.9985, L502.0250 #### [facility] [address] [place], [address] Calculated very low density lipoprotein (VLDL) cholesterol measurementOrdered By: Gelacio Mckeon on 04-04-2025 Calculated very low density lipoprotein (VLDL) cholesterol measurement 27 mg/dL 5-40 [facility] Carbon dioxide, total [Moles /volume] in Central venous bloodOrdered By: Gelacio Mckeon on 04-04-2025 CO2 [Moles/Vol] 23.0 mmol/L 21.0-32.0 [facility] Chloride assayOrdered By: Gina Mckeon on 04-04-2025 Chloride [Moles/Vol] 104 mmol/L 98-108 [facility] Comprehensive Metabolic Prof ilon 04-04-2025 Albumin [Mass/Vol] 4.1 g/dL Normal 3.4-4.8 [facility] Comment on above: Performed By: #### L 501.5200, L501.9520, L100.0100, L500.4100, L500.4050, L501.9985, L502.0250 #### [facility] [address] [place], [address] Albumin/Globulin [Mass ratio] 1.3 {ratio} Normal 0.9-2.4 [facility] Comment on above: Performed By: #### L 501.5200, L501.9520, L100.0100, L500.4100, L500.4050, L501.9985, L502.0250 #### [facility] [address] [place], [address] ALK PHOS 76 U/L Normal 35-104 [facility] Comment on above: Performed By: #### L 501.5200, L501.9520, L100.0100, L500.4100, L500.4050, L501.9985, L502.0250 #### [facility] [address] [place], [address] ALT [Catalytic activity/Vol] 23 U/L Normal <=34 [facility] Comment on above: Performed By: #### L 501.5200, L501.9520, L100.0100, L500.4100, L500.4050, L501.9985, L502.0250 #### [facility] [address] [place], [address] AST [Catalytic activity/Vol] 19 U/L Normal <=31 [facility] Comment on above: Performed By: #### L 501.5200, L501.9520, L100.0100, L500.4100, L500.4050, L501.9985, L502.0250 #### [facility] [address] [place], [address] Bilirubin [Mass/Vol] 0.48 mg/dL Normal 0.00-1.30 [facility] Comment on above: Performed By: #### L 501.5200, L501.9520, L100.0100, L500.4100, L500.4050, L501.9985, L502.0250 #### [facility] [address] [place], [address] BUN/CRE 19.5 RATIO Normal 10-20 [facility] Comment on above: Performed By: #### L 501.5200, L501.9520, L100.0100, L500.4100, L500.4050, L501.9985, L502.0250 #### [facility] [address] [place], [address] Calcium [Mass/Vol] 9.4 mg/dL Normal 7.6-11.0 [facility] Comment on above: Performed By: #### L 501.5200, L501.9520, L100.0100, L500.4100, L500.4050, L501.9985, L502.0250 #### [facility] [address] [place], [address] Chloride [Moles/Vol] 104 mmol/L Normal 98-108 [facility] Comment on above: Performed By: #### L 501.5200, L501.9520, L100.0100, L500.4100, L500.4050, L501.9985, L502.0250 #### [facility] [address] [place], [address] CO2 [Moles/Vol] 23.0 mmol/L Normal 21.0-32.0 [facility] Comment on above: Performed By: #### L 501.5200, L501.9520, L100.0100, L500.4100, L500.4050, L501.9985, L502.0250 #### [facility] [address] [place], [address] Creatinine [Mass/Vol] 0.89 mg/dL Normal 0.70-1.20 [facility] Comment on above: Performed By: #### L 501.5200, L501.9520, L100.0100, L500.4100, L500.4050, L501.9985, L502.0250 #### [facility] [address] [place], [address] GAP 11 Normal 5-15 [facility] Comment on above: Performed By: #### L 501.5200, L501.9520, L100.0100, L500.4100, L500.4050, L501.9985, L502.0250 #### [facility] [address] [place], [address] GFR/1.73 sq M.predicted among non-blacks MDRD (S/P/Bld) [Vol rate/Area] 67 mL/min/{1.73_m2} Normal >60 [facility] Comment on above: Result Comment: mL/m in/1.73m2 CKD-EPI Creatinine Equation (2020) Performed By: #### L 501.5200, L501.9520, L100.0100, L500.4100, L500.4050, L501.9985, L502.0250 #### [facility] [address] [place], [address] Globulin (S) [Mass/Vol] 3.3 g/dL Normal 2.2-4.2 [facility] Comment on above: Performed By: #### L 501.5200, L501.9520, L100.0100, L500.4100, L500.4050, L501.9985, L502.0250 #### [facility] [address] [place], [address] Glucose [Mass/Vol] 119 mg/dL High 70-99 [facility] Comment on above: Performed By: #### L 501.5200, L501.9520, L100.0100, L500.4100, L500.4050, L501.9985, L502.0250 #### [facility] [address] [place], [address] Potassium [Moles/Vol] 4.0 mmol/L Normal 3.3-5.1 [facility] Comment on above: Performed By: #### L 501.5200, L501.9520, L100.0100, L500.4100, L500.4050, L501.9985, L502.0250 #### [facility] [address] [place], [address] Sodium [Moles/Vol] 138 mmol/L Normal 133-145 [facility] Comment on above: Performed By: #### L 501.5200, L501.9520, L100.0100, L500.4100, L500.4050, L501.9985, L502.0250 #### [facility] [address] [place], [address] T PROT 7.4 g/dL Normal 5.9-8.4 [facility] Comment on above: Performed By: #### L 501.5200, L501.9520, L100.0100, L500.4100, L500.4050, L501.9985, L502.0250 #### [facility] [address] [place], [place], [address] Urea nitrogen [Mass/Vol] 17 mg/dL Normal 4-19 [facility] Comment on above: Performed By: #### L 501.5200, L501.9520, L100.0100, L500.4100, L500.4050, L501.9985, L502.0250 #### [facility] [address] [place], [place], [address] Eosinophil percentageOrdered By: Gelacio Mckeon on 04-04-2025 Eosinophils/100 WBC (Bld) 4.1 % 0-5 [facility] Erythrocyte distribution wid th ratioOrdered By: Gelacio Mckeon on 04-04-2025 Erythrocyte distribution width (RBC) [Ratio] 12.8 % 11.6-14.6 [facility] Erythrocyte distribution wid th standard deviationOrdered By: Gelacio Mckeon on 04-04-2025 Erythrocyte distribution width (RBC) [Ratio] 43.8 fl 35.1-43.9 [facility] Glomerular filtration rate ( GFR) estimation/1.73 sq m using serum, plasma, or whole bOrdered By: Gelacio Mckeon on 04-04-2025 GFR/1.73 sq M.predicted among non-blacks MDRD (S/P/Bld) [Vol rate/Area] 67 mL/min/{1.73_m2} >60 [facility] Comment on above: mL/min/1.73m2 CKD-EP I Creatinine Equation (2020) Hematocrit Auto (Bld) [Volum e fraction]Ordered By: Gelacio Mckeon on 04-04-2025 Hematocrit (Bld) [Volume fraction] 44.2 % 37-47 [facility] Hemoglobin A1con 04-04-2025 HbA1c (Bld) [Mass fraction] 6.7 % High <=5.6 [facility] Comment on above: Result Comment: Norm al < 5.7 % Prediabetic 5.7 - 6.4 % Diabetic >or= 6.5 % Please note range changes. Performed By: #### L 501.5200, L501.9520, L100.0100, L500.4100, L500.4050, L501.9985, L502.0250 #### [facility] [place], [address] Hemoglobin A1c percentageOrd ered By: Gelacio Mckeon on 04-04-2025 HbA1c (Bld) [Mass fraction] 6.7 % High <5.7 [facility] Comment on above: Normal < 5.7 % Predi abetic 5.7 - 6.4 % Diabetic >or= 6.5 % Please note range changes. Hemoglobin measurementOrdere d By: Gelacio Mckeon on 04-04-2025 Hemoglobin (Bld) [Mass/Vol] 14.6 g/dL 12.0-15.0 [facility] Immature granulocytes/100 WB C Auto (Bld)Ordered By: Gelacio Mckeon on 04-04-2025 Immature granulocytes/100 WBC (Bld) 0.300 % 0.0-0.9 [facility] Comment on above: IG% - Immature Granu locytes (promyelocytes, myelocytes and metamyelocytes) > 1% indicates that a LEFT SHIFT is Present. LDL calc ser/plasOrdered By: Gelacio Mckeon on 04-04-2025 Cholesterol in LDL [Mass/Vol] 97 mg/dL [facility] Comment on above: Yeatzkaajh=143-179 m g/dL & Higher Kedf=970 mg/dL or greater Laboratory - Chemistry and C hemistry - challengeOrdered By: Gelacio Mckeon on 04-04-2025 AST [Catalytic activity/Vol] 19 U/L <32 [facility] Lipid Profileon 04-04-2025 CHOL:HDL 4.03 Normal [facility] Comment on above: Performed By: #### L 501.5200, L501.9520, L100.0100, L500.4100, L500.4050, L501.9985, L502.0250 #### [facility] [address] [place], [address] Cholesterol [Mass/Vol] 164 mg/dL Normal <=200 [facility] Comment on above: Result Comment: Chol esterol level, Desirable <200 mg/dL Borderline high cholesterol 200-239 mg/dL High cholesterol >=240 mg/dL Recommendations of the NCEP Adult Treatment Panel for the following risk-cutoff thresholds for the [place] population. Performed By: #### L 501.5200, L501.9520, L100.0100, L500.4100, L500.4050, L501.9985, L502.0250 #### [facility] [address] [place], [address] Cholesterol in HDL [Mass/Vol] 41 mg/dL Normal [facility] Comment on above: Result Comment: Edna onal Cholesterol Education Program (NCEP) guidelines: <40 mg/dL: Low HDL-cholesterol (major risk factor for CHD) >= 60 mg/dL: High HDL-cholesterol (negative risk factor for CHD) HDL-cholesterol is affected by a number of factors, e.g. smoking, exercise, hormones, sex and age. Performed By: #### L 501.5200, L501.9520, L100.0100, L500.4100, L500.4050, L501.9985, L502.0250 #### [facility] [address] [place], [address] Cholesterol in LDL [Mass/Vol] 97 mg/dL Normal [facility] Comment on above: Result Comment: Bord xgrfwn=876-213 mg/dL Higher Wlsp=384 mg/dL or greater Performed By: #### L 501.5200, L501.9520, L100.0100, L500.4100, L500.4050, L501.9985, L502.0250 #### [facility] [address] [place], [address] Cholesterol in VLDL [Mass/Vol] 27 mg/dL Normal 5-40 [facility] Comment on above: Performed By: #### L 501.5200, L501.9520, L100.0100, L500.4100, L500.4050, L501.9985, L502.0250 #### [facility] [address] [place], [address] Triglyceride [Mass/Vol] 134 mg/dL Normal [facility] Comment on above: Result Comment: The drugs N-Acetylcysteine and Metamizole may falsely depress this assay. Normal range: <150 mg/dL Borderline High: 150-199 mg/dL High: 200-499 mg/dL Very High: >500 mg/dL Performed By: #### L 501.5200, L501.9520, L100.0100, L500.4100, L500.4050, L501.9985, L502.0250 #### [facility] [address] [place], [address] MCV (mean corpuscular volume ) determinationOrdered By: Gelacio Mckeon on 04-04-2025 MCV (RBC) [Entitic vol] 94.0 fL 81-99 [facility] Magnesiumon 04-04-2025 Magnesium [Mass/Vol] 2.2 mg/dL Normal 1.5-2.2 [facility] Comment on above: Performed By: #### L 501.5200, L501.9520, L100.0100, L500.4100, L500.4050, L501.9985, L502.0250 #### [facility] [address] [place], [place], [id number] Magnesium measurement (mass/ volume)Ordered By: Gelacio Mckeon on 04-04-2025 Magnesium (Unsp spec) [Mass/Vol] 2.2 mg/dL 1.5-2.2 [facility] Mean corpuscular hemoglobin (MCH) determinationOrdered By: Gelacio Mckeon on 04-04-2025 MCH (RBC) [Entitic mass] 31.1 pg 27.0-32.0 [facility] Mean corpuscular hemoglobin concentration (MCHC) determinationOrdered By: Gelacio Mckeon on 04-04-2025 MCHC (RBC) [Mass/Vol] 33.0 g/dL 32-36 [facility] Mean platelet volume determi nationOrdered By: Gelacio Mckeon on 04-04-2025 Platelet mean volume (Bld) [Entitic vol] 10.9 fL 6.2-12.0 [facility] Microalb:Creat Ratio,Random URon 04-04-2025 Creatinine [Mass/Vol] 289.00 mg/dL High 28.00-217.00 [facility] Comment on above: Performed By: #### L 501.5200, L501.9520, L100.0100, L500.4100, L500.4050, L501.9985, L502.0250 #### [facility] [address] [place], [address] MALB:CREAT UNABLE TO CALCULATE Normal [facility] Comment on above: Performed By: #### L 501.5200, L501.9520, L100.0100, L500.4100, L500.4050, L501.9985, L502.0250 #### [facility] [address] [place], [address] MICROALBUMIN,UR < 12.0 Normal NO RANGE EST. [facility] Comment on above: Performed By: #### L 501.5200, L501.9520, L100.0100, L500.4100, L500.4050, L501.9985, L502.0250 #### [facility] [address] [place], [address] Microalbumin/creat ratio urO rdered By: Gelacio Mckeon on 04-04-2025 Urine microalbumin/creatinine ratio measurement UNABLE TO CALCULATE mg/g CRE [facility] Monocyte percentageOrdered B y: Gelacio Mckeon on 04-04-2025 Monocytes/100 WBC (Bld) 9.7 % 0-10 [facility] Neutrophil percentageOrdered By: Gelacio Mckeon on 04-04-2025 Neutrophils/100 WBC (Bld) 61.5 % 47-70 [facility] Nucleated red blood cell per centageOrdered By: Gelacio Mckeon on 04-04-2025 Nucleated RBC/100 WBC (Bld) [Ratio] 0 % 0-5 [facility] Platelet countOrdered By: Gina Mckeon on 04-04-2025 Platelets (Bld) [#/Vol] 263 10*3/uL 150-450 [facility] Potassium measurement (mass/ volume)Ordered By: Gelacio Mckeon on 04-04-2025 Potassium (Unsp spec) [Mass/Vol] 4.0 mmol/L 3.3-5.1 [facility] RBC Auto (Bld) [#/Vol]Ordere d By: Gelacio Mckeon on 04-04-2025 RBC (Bld) [#/Vol] 4.70 10*6/uL 4.2-5.4 [facility] Random urine creatinine rosie urement (mass/volume)Ordered By: Gelacio Mckeon on 04-04-2025 Creatinine Unsp time (U) [Mass/Vol] 289.00 mg/dL High 28.00-217.00 [facility] Screening total cholesterol/ high density lipoprotein (HDL) cholesterol ratioOrdered By: Gelacio Mckeon on 04-04-2025 Cholesterol.total/Choles terol in HDL [Mass ratio] 4.03 {ratio} [facility] Serum creatinine measurement (mass/volume)Ordered By: Gelacio Mckeon on 04-04-2025 Creatinine [Mass/Vol] 0.89 mg/dL 0.70-1.20 [facility] Serum globulin measurementOr dered By: Gelacio Mckeon on 04-04-2025 Globulin (S) [Mass/Vol] 3.3 g/dL 2.2-4.2 [facility] Serum glucose measurement (m ass/volume)Ordered By: Gelacio Mckeon on 04-04-2025 Glucose [Mass/Vol] 119 mg/dL High 70-99 [facility] Serum or plasma alanine flanagan otransferase (ALT) measurementOrdered By: Gelacio Mckeon on 04-04-2025 ALT [Catalytic activity/Vol] 23 U/L <35 [facility] Serum or plasma albumin rosie urement (mass/volume)Ordered By: Gelacio Mckeon on 04-04-2025 Albumin [Mass/Vol] 4.1 g/dL 3.4-4.8 [facility] Serum or plasma albumin/glob ulin mass ratioOrdered By: Gelacio Mckeon on 04-04-2025 Albumin/Globulin [Mass ratio] 1.3 {ratio} 0.9-2.4 [facility] Serum or plasma alkaline melissa sphatase measurementOrdered By: Gelacio Mckeon on 04-04-2025 ALP [Catalytic activity/Vol] 76 U/L 35-104 [facility] Serum or plasma calcium rosie urement (mass/volume)Ordered By: Gelacio Mckeon on 04-04-2025 Calcium [Mass/Vol] 9.4 mg/dL 7.6-11.0 [facility] Serum or plasma cholesterol in HDL measurement (mass/volume)Ordered By: Gelacio Mckeon on 04-04-2025 Cholesterol in HDL [Mass/Vol] 41 mg/dL >40 [facility] Comment on above: National Cholesterol Education Program (NCEP) guidelines:<40 mg/dL: Low HDL-cholesterol (major risk factor for CHD)>= 60 mg/dL: High HDL-cholesterol (negative risk factor for CHD)HDL-cholesterol is affected by a number of factors, e.g. smoking, exercise, hormones, sex and age. Serum or plasma cholesterol measurement (mass/volume)Ordered By: Gelacio Mckeon on 04-04-2025 Cholesterol [Mass/Vol] 164 mg/dL <201 [facility] Comment on above: Cholesterol level, D esirable <200 mg/dLBorderline high cholesterol 200-239 mg/dLHigh cholesterol >=240 mg/dLRecommendations of the NCEP Adult Treatment Panel for the following risk-cutoff thresholds for the [place] population. Serum or plasma urea nitroge n measurement (mass/volume)Ordered By: Gelacio Mckeon on 04-04-2025 Urea nitrogen [Mass/Vol] 17 mg/dL 4-19 [facility] Sodium levelOrdered By: Gelacio Mckeon on 04-04-2025 Sodium [Moles/Vol] 138 mmol/L 133-145 [facility] TSH DL <= 0.005 mIU/L QnOrde red By: Gelacio Mckeon on 04-04-2025 TSH Qn 1.900 uIU/mL 0.300-4.200 [facility] Thyroid Stim Hormone (TSH)on 04-04-2025 TSH 1.900 uIU/mL Normal 0.300-4.200 [facility] Comment on above: Performed By: #### L 501.5200, L501.9520, L100.0100, L500.4100, L500.4050, L501.9985, L502.0250 #### [facility] [address] [place], [address] Total proteinOrdered By: Vita Mckeon on 04-04-2025 Protein [Mass/Vol] 7.4 g/dL 5.9-8.4 [facility] Triglycerides measurementOrd ered By: Gelacio Mckeon on 04-04-2025 Triglyceride [Mass/Vol] 134 mg/dL <199 [facility] Comment on above: The drugs N-Acetylcy steine and Metamizole may falsely depress this assay. Normal range: <150 mg/dLBorderline High: 150-199 mg/dLHigh: 200-499 mg/dLVery High: >500 mg/dL Urine albumin measurement wi detection limit of 20 mg/L or less (mass/volume)Ordered By: Gelacio Mckeon on 04-04-2025 Albumin DL <= 20 mg/L (U) [Mass/Vol] < 12.0 mg/L NO RANGE EST. [facility] White blood cell (WBC) count Ordered By: Gelacio Mckeon on 04-04-2025 WBC (Bld) [#/Vol] 6.4 10*3/uL 4.4-11.0 [facility] SCRN MAMM (CAD)W/ROSA BILATo n 12-31-2024 SCRN MAMM (CAD)W/ROSA BILAT [facility] Imaging Services [address] [place] [address] SCRN MAMM (CAD)W/ROSA BILAT MR#: [id number] Acct: [id number] Name: ANDREY TAY Rep #: [id number] : 1945 F 79 From: Frank crane MD PCP: Dr. Marine Mcintosh MD Status: REG CLI Study: SCRN MAMM (CAD)W/ROSA BILAT Date of Exam: 12/21 12/14 Exam# [id number] Ordering Dr: Gelacio Mckeon DO PROCEDURE: SCRN MAMM (CAD)W/ROSA BILAT REASON FOR EXAM: F, Age 79 y/o, grandmother with breast cancer. Routine annual follow-up. TECHNIQUE: Bilateral screening digital breast tomosynthesis with 2D and 3D images. Computer aided detection. COMPARISON: Prior exam(s) dating back to September 12, 2023.. FINDINGS: The breasts are heterogeneously dense which may obscure small masses. Stable examination. No suspicious masses, areas of developing architectural distortion, or suspicious calcifications. BI/SCRN MAMM (CAD)W/ROSA BILAT IMPRESSION: BI-RADS 1: NEGATIVE. RECOMMEND ANNUAL MAMMOGRAPHIC SCREENING. Follow-up code: Routine Follow-up The patient will be notified of the results by letter. Reading Location: [id number] CC: Dr. Marine Mcintosh MD; Dr. Gelacio Mckeon DO [employer] Worker: Signed Normal [facility] Basic Metabolic Profile (BMP )on 07-18-2024 BUN/CRE 23.2 RATIO High 10-20 [facility] Comment on above: Performed By: #### L 100.0100, L501.5200, L500.2500, L501.9985, L501.9520 #### [facility] Laboratory [address] [place], [address] CA,Total 9.9 mg/dL Normal 8.5-10.1 [facility] Comment on above: Performed By: #### L 100.0100, L501.5200, L500.2500, L501.9985, L501.9520 #### [facility] [address] [place], [address] Chloride [Moles/Vol] 110 mmol/L High 98-107 [facility] Comment on above: Performed By: #### L 100.0100, L501.5200, L500.2500, L501.9985, L501.9520 #### [facility] [address] [place], [address] CO2 [Moles/Vol] 26.0 mmol/L Normal 21.0-32.0 [facility] Comment on above: Performed By: #### L 100.0100, L501.5200, L500.2500, L501.9985, L501.9520 #### [facility] [address] [place], [address] Creatinine [Mass/Vol] 0.82 mg/dL Normal 0.55-1.02 [facility] Comment on above: Result Comment: The validity of the calculated GFR GFRAA in patients over 70 years has not been determined. Clinical correlation is essential. Performed By: #### L 100.0100, L501.5200, L500.2500, L501.9985, L501.9520 #### [facility] [address] [place], [address] EST GFR - AA 87 mL/min Normal >60 [facility] Comment on above: Result Comment: Afri can [place] GFR Calc Performed By: #### L 100.0100, L501.5200, L500.2500, L501.9985, L501.9520 #### [facility] [address] [place], [address] GAP 3 Low 5-15 [facility] Comment on above: Performed By: #### L 100.0100, L501.5200, L500.2500, L501.9985, L501.9520 #### [facility] [address] [place], [address] GFR/1.73 sq M.predicted among non-blacks MDRD (S/P/Bld) [Vol rate/Area] 72 mL/min/{1.73_m2} Normal >60 [facility] Comment on above: Result Comment: Non- GFR Calc Performed By: #### L 100.0100, L501.5200, L500.2500, L501.9985, L501.9520 #### [facility] [address] [place], [address] Glucose [Mass/Vol] 97 mg/dL Normal 74-106 [facility] Comment on above: Performed By: #### L 100.0100, L501.5200, L500.2500, L501.9985, L501.9520 #### [facility] [address] [place], [address] Potassium [Moles/Vol] 3.8 mmol/L Normal 3.5-5.1 [facility] Comment on above: Performed By: #### L 100.0100, L501.5200, L500.2500, L501.9985, L501.9520 #### [facility] [address] [place], [address] Sodium [Moles/Vol] 139 mmol/L Normal 136-145 [facility] Comment on above: Performed By: #### L 100.0100, L501.5200, L500.2500, L501.9985, L501.9520 #### [facility] [address] [place], [address] Urea nitrogen [Mass/Vol] 19 mg/dL High 7-18 [facility] Comment on above: Performed By: #### L 100.0100, L501.5200, L500.2500, L501.9985, L501.9520 #### [facility] [address] [place], [address] CBC W/Diff, Automatedon 06-21 Absolute Lymph 1.67 X10 3/uL Normal 0.83-4.51 [facility] Comment on above: Performed By: #### L 100.0100, L501.5200, L500.2500, L501.9985, L501.9520 #### [facility] [address] [place], [address] Absolute Neut 4.8 X10 3/uL Normal 2.0-7.7 [facility] Comment on above: Performed By: #### L 100.0100, L501.5200, L500.2500, L501.9985, L501.9520 #### [facility] [address] [place], [address] Basophils/100 WBC (Bld) 0.9 % Normal 0-1 [facility] Comment on above: Performed By: #### L 100.0100, L501.5200, L500.2500, L501.9985, L501.9520 #### [facility] [address] [place], [address] Eosinophils/100 WBC (Bld) 3.7 % Normal 0-5 [facility] Comment on above: Performed By: #### L 100.0100, L501.5200, L500.2500, L501.9985, L501.9520 #### [facility] [address] [place], [address] Erythrocyte distribution width (RBC) [Ratio] 13.1 % Normal 11.6-14.6 [facility] Comment on above: Performed By: #### L 100.0100, L501.5200, L500.2500, L501.9985, L501.9520 #### [facility] [address] [place], [address] Hematocrit (Bld) [Volume fraction] 45.1 % Normal 37-47 [facility] Comment on above: Performed By: #### L 100.0100, L501.5200, L500.2500, L501.9985, L501.9520 #### [facility] [address] [place], [address] Hemoglobin (Bld) [Mass/Vol] 14.4 g/dL Normal 12.0-15.0 [facility] Comment on above: Performed By: #### L 100.0100, L501.5200, L500.2500, L501.9985, L501.9520 #### [facility] [address] [place], [address] IG% 0.300 Normal 0.0-0.9 [facility] Comment on above: Result Comment: IG% - Immature Granulocytes (promyelocytes, myelocytes and metamyelocytes) > 1% indicates that a LEFT SHIFT is Present. Performed By: #### L 100.0100, L501.5200, L500.2500, L501.9985, L501.9520 #### [facility] [address] [place], [address] Lymphocytes/100 WBC (Bld) 22.1 % Normal 19-41 [facility] Comment on above: Performed By: #### L 100.0100, L501.5200, L500.2500, L501.9985, L501.9520 #### [facility] [address] [place], [address] MCH (RBC) [Entitic mass] 30.6 pg Normal 27.0-32.0 [facility] Comment on above: Performed By: #### L 100.0100, L501.5200, L500.2500, L501.9985, L501.9520 #### [facility] [address] [place], [address] MCHC (RBC) [Mass/Vol] 31.9 g/dL Low 32-36 [facility] Comment on above: Performed By: #### L 100.0100, L501.5200, L500.2500, L501.9985, L501.9520 #### [facility] [address] [place], [address] MCV (RBC) [Entitic vol] 95.8 fL Normal 81-99 [facility] Comment on above: Performed By: #### L 100.0100, L501.5200, L500.2500, L501.9985, L501.9520 #### [facility] [address] [place], [address] Monocytes/100 WBC (Bld) 9.5 % Normal 0-10 [facility] Comment on above: Performed By: #### L 100.0100, L501.5200, L500.2500, L501.9985, L501.9520 #### [facility] [address] [place], [address] Neutrophils/100 WBC (Bld) 63.5 % Normal 47-70 [facility] Comment on above: Performed By: #### L 100.0100, L501.5200, L500.2500, L501.9985, L501.9520 #### [facility] [address] [place], [address] Nucleated RBC (Bld) [#/Vol] 0 10*3/uL Normal 0-5 [facility] Comment on above: Performed By: #### L 100.0100, L501.5200, L500.2500, L501.9985, L501.9520 #### [facility] [address] [place], [address] Platelet mean volume (Bld) [Entitic vol] 11.0 fL Normal 6.2-12.0 [facility] Comment on above: Performed By: #### L 100.0100, L501.5200, L500.2500, L501.9985, L501.9520 #### [facility] [address] [place], [address] Platelets (Bld) [#/Vol] 274 10*3/uL Normal 150-450 [facility] Comment on above: Performed By: #### L 100.0100, L501.5200, L500.2500, L501.9985, L501.9520 #### [facility] [address] [place], [address] RBC (Bld) [#/Vol] 4.71 10*6/uL Normal 4.2-5.4 [facility] Comment on above: Performed By: #### L 100.0100, L501.5200, L500.2500, L501.9985, L501.9520 #### [facility] [address] [place], [address] RDW SD 46.5 fl High 35.1-43.9 [facility] Comment on above: Performed By: #### L 100.0100, L501.5200, L500.2500, L501.9985, L501.9520 #### [facility] [address] [place], [address] WBC (Bld) [#/Vol] 7.6 10*3/uL Normal 4.4-11.0 [facility] Comment on above: Performed By: #### L 100.0100, L501.5200, L500.2500, L501.9985, L501.9520 #### [facility] [address] [place], [address] Hemoglobin A1con 07-18-2024 HbA1c (Bld) [Mass fraction] 6.2 % High 3.8-5.6 [facility] Comment on above: Result Comment: Norm al < 5.7 % Prediabetic 5.7 - 6.4 % Diabetic >or= 6.5 % Please note range changes. Performed By: #### L 501.5200, L501.9520, L100.0100, L500.4100, L500.4050, L501.9985, L502.0250 #### [facility] [address] [place], [address] Magnesiumon 07-18-2024 Magnesium [Mass/Vol] 2.4 mg/dL Normal 1.6-2.6 [facility] Comment on above: Performed By: #### L 100.0100, L501.5200, L500.2500, L501.9985, L501.9520 #### [facility] [address] [place], [address] Thyroid Stim Hormone (TSH)on 07-18-2024 TSH 1.110 uIU/mL Normal 0.358-3.740 [facility] Comment on above: Performed By: #### L 501.5200, L501.9520, L100.0100, L500.4100, L500.4050, L501.9985, L502.0250 #### [facility] [address] [place], [address] Basophil percentageOrdered B y: Jaqueline Loera on 12-28-2023 Bilirubin [Mass/Vol] 0.80 mg/dL 0.20-1.00 [facility] Comment on above: For patients on eltr ombopag therapy, use of Dimension [place] TBIL is not recommended. Chloride [Moles/Vol] 109 mmol/L 98-107 [facility] Glucose [Mass/Vol] 115 mg/dL 74-106 [facility] Comment on above: Fasting Glucose resu lt from 100 to 125 mg/dL suggests IMPAIRED HOMEOSTASIS per A.D.A. criteria. Potassium [Moles/Vol] 3.9 mmol/L 3.5-5.1 [facility] Protein [Mass/Vol] 7.6 g/dL 6.4-8.2 [facility] Sodium [Moles/Vol] 139 mmol/L 136-145 [facility] - Chemistry and C hemistry - challengeOrdered By: Jaqueline Loera on 12-28-2023 Albumin/Globulin [Mass ratio] 0.8 {ratio} 0.9-2.4 [facility] ALP [Catalytic activity/Vol] 82 U/L 45-117 [facility] ALT [Catalytic activity/Vol] 28 U/L 13-56 [facility] CO2 [Moles/Vol] 27.0 mmol/L 21.0-32.0 [facility] Globulin (S) [Mass/Vol] 4.2 g/dL 2.2-4.2 [facility] Magnesium [Mass/Vol] 2.2 mg/dL 1.6-2.6 [facility] Urea nitrogen/Creatinine [Mass ratio] 16.5 mg/mg 10-20 [facility] No Panel InformationOrdered By: Jaqueline Loera on 12-28-2023 Estimated GFR (MDRD) Amer 91 mL/min >60 [facility] Comment on above: GFR Calc Estimated GFR (MDRD) Non-Af Amer 75 mL/min >60 [facility] Comment on above: Non- GFR Calc Serum or plasma calcium rosie urement (mass/volume)Ordered By: Jaqueline Loera on 12-28-2023 Calcium [Mass/Vol] 8.9 mg/dL 8.5-10.1 [facility] Serum or plasma cortisol pedro surement (mass/volume)Ordered By: Jaqueline Loera on 12-28-2023 Cortisol [Mass/Vol] 12.00 ug/dL 3.44-22.45 [facility] Comment on above: Adult (AM) 5.27 - 22 .45 ug/dL Adult (PM) 3.44 - 16.76 ug/dLPlease note revised CORTISOL reference range effective 2020. Serum or plasma creatinine m easurement (mass/volume)Ordered By: Jaqueline Loera on 12-28-2023 Creatinine [Mass/Vol] 0.79 mg/dL 0.55-1.02 [facility] Comment on above: The validity of the calculated GFR & GFRAA in patients over 70 years has not been determined. Clinical correlation is essential. Serum or plasma thyroid stim ulating hormone (TSH) measurement (units/volume)Ordered By: Jaqueline Loera on 12-28-2023 TSH Qn 1.13 uIU/mL 0.358-3.74 [facility] Serum or plasma urea nitroge n measurement (mass/volume)Ordered By: Jaqueline Loera on 12-28-2023 Urea nitrogen [Mass/Vol] 13 mg/dL 7-18 [facility] Thin prep Papanicolaou smear with manual screeningOrdered By: Jaqueline Loera on 12-28-2023 Thin prep Papanicolaou smear with manual screening 3.4 g/dL 3.2-5.0 [facility] Thin prep Papanicolaou smear with manual screening 13 U/L 15-37 [facility] Thin prep Papanicolaou smear with manual screening 3 5-15 [facility] Thin prep Papanicolaou smear with manual screening 1.22 ng/dL 0.76-1.46 [facility] Thin prep Papanicolaou smear with manual screening 8.2 ng/dL 0.0-30.0 [facility] Comment on above: Performed at: [address] [id number] Director: Navi Field MD, Phone: [phone] Whole blood hemoglobin A1c/t otal hemoglobin ratio (mass fraction)Ordered By: Jaqueline Loera on 12-28-2023 HbA1c (Bld) [Mass fraction] 6.3 % 3.8-5.6 [facility] Comment on above: Normal < 5.7 % Predi abetic 5.7 - 6.4 % Diabetic >or= 6.5 % Please note range changes. Absolute lymphocyte countOrd ered By: Gelacio Mckeon on 09-05-2023 Lymphocytes Auto (Unsp spec) [#/Vol] 1.67 10*3/uL 0.83-4.51 [facility] Basophil percentageOrdered B y: Gelacio Mckeon on 09-05-2023 Basophils/100 WBC (Bld) 0.9 % 0-1 [facility] Bilirubin [Mass/Vol] 0.40 mg/dL 0.20-1.00 [facility] Comment on above: For patients on eltr ombopag therapy, use of Dimension [place] TBIL is not recommended. Chloride [Moles/Vol] 109 mmol/L 98-107 [facility] Eosinophils/100 WBC (Bld) 2.7 % 0-5 [facility] Glucose [Mass/Vol] 92 mg/dL 74-106 [facility] Neutrophils (Bld) [#/Vol] 5.2 10*3/uL 2.0-7.7 [facility] Neutrophils/100 WBC (Bld) 66.0 % 47-70 [facility] Potassium [Moles/Vol] 3.8 mmol/L 3.5-5.1 [facility] Protein [Mass/Vol] 7.5 g/dL 6.4-8.2 [facility] Sodium [Moles/Vol] 141 mmol/L 136-145 [facility] WBC (Bld) [#/Vol] 7.9 10*3/uL 4.4-11.0 [facility] Blood erythrocytes count (nu mber/volume)Ordered By: Gelacio Mckeon on 09-05-2023 RBC (Bld) [#/Vol] 4.60 10*6/uL 4.2-5.4 [facility] Blood hemoglobin measurement (mass/volume)Ordered By: Gelacio Mckeon on 09-05-2023 Hemoglobin (Bld) [Mass/Vol] 14.0 g/dL 12.0-15.0 [facility] Blood lymphocytes/100 leukoc ytesOrdered By: Gelacio Mckeon on 09-05-2023 Lymphocytes/100 WBC (Bld) 21.3 % 19-41 [facility] Blood monocytes/100 leukocyt esOrdered By: Gelacio Mckeon on 09-05-2023 Monocytes/100 WBC (Bld) 8.5 % 0-10 [facility] Blood platelet mean volumeOr dered By: eGlacio Mckeon on 09-05-2023 Platelet mean volume (Bld) [Entitic vol] 10.7 fL 6.2-12.0 [facility] Determination of erythrocyte mean corpuscular volume (MCV)Ordered By: Gelacio Mckeon on 09-05-2023 MCV (RBC) [Entitic vol] 97.4 fL 81-99 [facility] Hematocrit Auto (Bld) [Volum e fraction]Ordered By: Gelacio Mckeon on 09-05-2023 Hematocrit (Bld) [Volume fraction] 44.8 % 37-47 [facility] - Chemistry and C hemistry - challengeOrdered By: Gelacio Mckeon on 09-05-2023 ALP [Catalytic activity/Vol] 68 U/L 45-117 [facility] ALT [Catalytic activity/Vol] 37 U/L 13-56 [facility] CO2 [Moles/Vol] 27.0 mmol/L 21.0-32.0 [facility] Free T4 [Mass/Vol] 1.21 ng/dL 0.76-1.46 [facility] Globulin (S) [Mass/Vol] 4.0 g/dL 2.2-4.2 [facility] Urea nitrogen/Creatinine [Mass ratio] 21.2 mg/mg 10-20 [facility] - Hematology and Cell countsOrdered By: Gelacio Mckeon on 09-05-2023 Erythrocyte distribution width (RBC) [Entitic vol] 48.2 fL 35.1-43.9 [facility] Erythrocyte distribution width (RBC) [Ratio] 13.4 % 11.6-14.6 [facility] Immature granulocytes/100 WBC (Bld) 0.600 % 0.0-0.9 [facility] Comment on above: IG% - Immature Granu locytes (promyelocytes, myelocytes and metamyelocytes) > 1% indicates that a LEFT SHIFT is Present. MCH (RBC) [Entitic mass] 30.4 pg 27.0-32.0 [facility] Nucleated RBC/100 WBC (Bld) [Ratio] 0 % 0-5 [facility] MCHC Auto (RBC) [Mass/Vol]Or dered By: Gelacio Mckeon on 09-05-2023 MCHC (RBC) [Mass/Vol] 31.3 g/dL 32-36 [facility] No Panel InformationOrdered By: Gelacio Mckeon on 09-05-2023 Estimated GFR (MDRD) Amer 84 mL/min >60 [facility] Comment on above: GFR Calc Estimated GFR (MDRD) Non-Af Amer 69 mL/min >60 [facility] Comment on above: Non- GFR Calc Thyroid Stimulating Hormone (TSH) 1.19 uIU/mL 0.358-3.74 [facility] Platelets bldOrdered By: Vita Mckeon on 10-17-2023 Platelets (Bld) [#/Vol] 258 10*3/uL 150-450 [facility] Serum or plasma albumin rosie urement (mass/volume)Ordered By: Gelacio Mckeon on 09-05-2023 Albumin [Mass/Vol] 3.5 g/dL 3.2-5.0 [facility] Serum or plasma albumin/glob ulin mass ratioOrdered By: Gelacio Mckeon on 09-05-2023 Albumin/Globulin [Mass ratio] 0.9 {ratio} 0.9-2.4 [facility] Serum or plasma calcium rosie urement (mass/volume)Ordered By: Gelacio Mckeon on 09-05-2023 Calcium [Mass/Vol] 9.2 mg/dL 8.5-10.1 [facility] Serum or plasma creatinine m easurement (mass/volume)Ordered By: Gelacio Mckeon on 09-05-2023 Creatinine [Mass/Vol] 0.85 mg/dL 0.55-1.02 [facility] Comment on above: The validity of the calculated GFR & GFRAA in patients over 70 years has not been determined. Clinical correlation is essential. Serum or plasma urea nitroge n measurement (mass/volume)Ordered By: Gelacio Mckeon on 09-05-2023 Urea nitrogen [Mass/Vol] 18 mg/dL 7-18 [facility] Thin prep Papanicolaou smear with manual screeningOrdered By: Gelacio Mckeon on 09-05-2023 Thin prep Papanicolaou smear with manual screening 16 U/L 15-37 [facility] Thin prep Papanicolaou smear with manual screening 5 5-15 [facility] - Chemistry and C hemistry - challengeOrdered By: Gelacio Mckeon on 05-12-2023 Lipase [Catalytic activity/Vol] 33 U/L 13-75 [facility] Comment on above: Please note:LIPASE r evised reference range effective 23. New Lipase methodology. Expected to produce lower values than the previous assay method. NEW Reference Range: 13 - 75 U/L Serum or plasma cortisol pedro surement (mass/volume)Ordered By: Gelacio Mckeon on 05-12-2023 Cortisol [Mass/Vol] 7.00 ug/dL 3.44-22.45 [facility] Comment on above: Adult (AM) 5.27 - 22 .45 ug/dL Adult (PM) 3.44 - 16.76 ug/dLPlease note revised CORTISOL reference range effective 2020. Thin prep Papanicolaou smear with manual screeningOrdered By: Gelacio Mckeon on 05-12-2023 Thin prep Papanicolaou smear with manual screening 10.4 ng/dL 0.0-30.0 [facility] Comment on above: Performed at: - [address] [id number] Director: Navi Field MD, Phone: [phone] Basophil percentageOrdered B y: Dr. Mckeon on 04-25-2023 Potassium [Moles/Vol] 3.9 mmol/L 3.5-5.1 [facility] Basophil percentageOrdered B y: Dr. Mckeon on 04-05-2023 Cholesterol [Mass/Vol] 157 mg/dL <200 [facility] Comment on above: <200 mg/dL Desirable 200-240 mg/dL Borderline >240 mg/dL High Risk Triglyceride [Mass/Vol] 113 mg/dL <199 [facility] Comment on above: The drugs N-Acetylcy steine and Metamizole may falsely depress this assay.Serum Triglycerides Reference Interval Normal <150 mg/dL Borderline high 150 - 199 mg/dL High 200 - 499 mg/dL Very High > or = 500 mg/dL Serum or plasma cholesterol in HDL measurement (mass/volume)Ordered By: Dr. Mckeon on 04-05-2023 Cholesterol in HDL [Mass/Vol] 44 mg/dL >40 [facility] Comment on above: The drugs N-Acetylcy steine and Metamizole may falsely depress this assay. Reference Range HDL <40 mg/dL Low HDL Cholesterol HDL >or= 60 mg/dL High HDL Cholesterol Serum or plasma cholesterol in VLDL measurement (mass/volume)Ordered By: Dr. Mckeon on 04-05-2023 Cholesterol in VLDL [Mass/Vol] 23 mg/dL 5-40 [facility] Serum or plasma cortisol pedro surement (mass/volume)Ordered By: Dr. Mckeon on 04-05-2023 Cortisol [Mass/Vol] 11.50 ug/dL 3.44-22.45 [facility] Comment on above: Adult (AM) 5.27 - 22 .45 ug/dL Adult (PM) 3.44 - 16.76 ug/dLPlease note revised CORTISOL reference range effective 2020. Serum or plasma low density lipoprotein (LDL) cholesterol measurement (mass/volume)Ordered By: Dr. Mckeon on 04-05-2023 Cholesterol in LDL [Mass/Vol] 90 mg/dL 0-130 [facility] Thin prep Papanicolaou smear with manual screeningOrdered By: Dr. Mckeon on 04-05-2023 Thin prep Papanicolaou smear with manual screening 6.9 ng/dL 0.0-30.0 [facility] Comment on above: Performed at: [address] [id number] Director: Navi Field MD, Phone: [phone] Whole blood hemoglobin A1c/t otal hemoglobin ratio (mass fraction)Ordered By: Dr. Mckeon on 04-05-2023 HbA1c (Bld) [Mass fraction] 6.0 % 3.8-5.6 [facility] Comment on above: Normal < 5.7 % Predi abetic 5.7 - 6.4 % Diabetic >or= 6.5 % Please note range changes. Absolute lymphocyte countOrd ered By: Dr. Mckeon on 12-09-2022 Lymphocytes Auto (Unsp spec) [#/Vol] 1.88 10*3/uL 0.83-4.51 [facility] Basophil percentageOrdered B y: Dr. Mckeon on 12-09-2022 Basophils/100 WBC (Bld) 1.0 % 0-1 [facility] Bilirubin [Mass/Vol] 0.40 mg/dL 0.20-1.00 [facility] Comment on above: For patients on eltr ombopag therapy, use of Dimension [place] TBIL is not recommended. Chloride [Moles/Vol] 108 mmol/L 98-107 [facility] Eosinophils/100 WBC (Bld) 3.1 % 0-5 [facility] Glucose [Mass/Vol] 146 mg/dL 74-106 [facility] Comment on above: Fasting Glucose resu lt greater than or equal to 126 mg/dL suggests DIABETES MELLITUS per A.D.A. criteria. Neutrophils (Bld) [#/Vol] 5.3 10*3/uL 2.0-7.7 [facility] Neutrophils/100 WBC (Bld) 65.3 % 47-70 [facility] Potassium [Moles/Vol] 3.6 mmol/L 3.5-5.1 [facility] Protein [Mass/Vol] 7.4 g/dL 6.4-8.2 [facility] Sodium [Moles/Vol] 142 mmol/L 136-145 [facility] WBC (Bld) [#/Vol] 8.0 10*3/uL 4.4-11.0 [facility] Blood erythrocytes count (nu mber/volume)Ordered By: Dr. Mckeon on 12-09-2022 RBC (Bld) [#/Vol] 4.50 10*6/uL 4.2-5.4 [facility] Blood hemoglobin measurement (mass/volume)Ordered By: Dr. Mckeon on 12-09-2022 Hemoglobin (Bld) [Mass/Vol] 14.5 g/dL 12.0-15.0 [facility] Blood lymphocytes/100 leukoc ytesOrdered By: Dr. Mckeon on 12-09-2022 Lymphocytes/100 WBC (Bld) 23.4 % 19-41 [facility] Blood monocytes/100 leukocyt esOrdered By: Dr. Mckeon on 12-09-2022 Monocytes/100 WBC (Bld) 7.0 % 0-10 [facility] Blood platelet mean volumeOr dered By: Dr. Mckeon on 12-09-2022 Platelet mean volume (Bld) [Entitic vol] 11.0 fL 6.2-12.0 [facility] Determination of erythrocyte mean corpuscular volume (MCV)Ordered By: Dr. Mckeon on 12-09-2022 MCV (RBC) [Entitic vol] 96.2 fL 81-99 [facility] Hematocrit Auto (Bld) [Volum e fraction]Ordered By: Dr. Mckeon on 12-09-2022 Hematocrit (Bld) [Volume fraction] 43.3 % 37-47 [facility] Laboratory - Chemistry and C hemistry - challengeOrdered By: Dr. Mckeon on 12-09-2022 ALP [Catalytic activity/Vol] 72 U/L 45-117 [facility] ALT [Catalytic activity/Vol] 35 U/L 13-56 [facility] CO2 [Moles/Vol] 26.0 mmol/L 21.0-32.0 [facility] Free T4 [Mass/Vol] 1.12 ng/dL 0.76-1.46 [facility] Globulin (S) [Mass/Vol] 3.9 g/dL 2.2-4.2 [facility] Urea nitrogen/Creatinine [Mass ratio] 21.7 mg/mg 10-20 [facility] Laboratory - Hematology and Cell countsOrdered By: Dr. Mckeon on 12-09-2022 Erythrocyte distribution width (RBC) [Entitic vol] 44.9 fL 35.1-43.9 [facility] Erythrocyte distribution width (RBC) [Ratio] 12.7 % 11.6-14.6 [facility] Immature granulocytes/100 WBC (Bld) 0.200 % 0.0-0.9 [facility] Comment on above: IG% - Immature Granu locytes (promyelocytes, myelocytes and metamyelocytes) > 1% indicates that a LEFT SHIFT is Present. MCH (RBC) [Entitic mass] 32.2 pg 27.0-32.0 [facility] Nucleated RBC/100 WBC (Bld) [Ratio] 0 % 0-5 [facility] MCHC Auto (RBC) [Mass/Vol]Or dered By: Dr. Mckeon on 12-09-2022 MCHC (RBC) [Mass/Vol] 33.5 g/dL 32-36 [facility] No Panel InformationOrdered By: Dr. Mckeon on 12-09-2022 Estimated GFR (MDRD) Amer 81 mL/min >60 [facility] Comment on above: GFR Calc Estimated GFR (MDRD) Non-Af Amer 67 mL/min >60 [facility] Comment on above: Non- GFR Calc Thyroid Stimulating Hormone (TSH) 1.02 uIU/mL 0.358-3.74 [facility] Tryptase 4.0 ug/L 2.2-13.2 [facility] Comment on above: Performed at: [facility] [address] [id number] Director: Navi Field MD, Phone: [phone] Platelets bldOrdered By: Dr. Mckeon on 12-09-2022 Platelets (Bld) [#/Vol] 259 10*3/uL 150-450 [facility] Serum or plasma albumin rosie urement (mass/volume)Ordered By: Dr. Mckeon on 12-09-2022 Albumin [Mass/Vol] 3.5 g/dL 3.2-5.0 [facility] Serum or plasma albumin/glob ulin mass ratioOrdered By: Dr. Mckeon on 12-09-2022 Albumin/Globulin [Mass ratio] 0.9 {ratio} 0.9-2.4 [facility] Serum or plasma calcium rosie urement (mass/volume)Ordered By: Dr. Mckeon on 12-09-2022 Calcium [Mass/Vol] 9.0 mg/dL 8.5-10.1 [facility] Serum or plasma creatinine m easurement (mass/volume)Ordered By: Dr. Mckeon on 12-09-2022 Creatinine [Mass/Vol] 0.88 mg/dL 0.55-1.02 [facility] Comment on above: The validity of the calculated GFR & GFRAA in patients over 70 years has not been determined. Clinical correlation is essential. Serum or plasma urea nitroge n measurement (mass/volume)Ordered By: Dr. Mckeon on 12-09-2022 Urea nitrogen [Mass/Vol] 19 mg/dL 7-18 [facility] Thin prep Papanicolaou smear with manual screeningOrdered By: Dr. Mckeon on 12-09-2022 Thin prep Papanicolaou smear with manual screening 14 U/L 15-37 [facility] Thin prep Papanicolaou smear with manual screening 8 5-15 [facility] Basophil percentageOrdered B y: Dr. Mckeon on 09-22-2022 Chloride [Moles/Vol] 108 mmol/L 98-107 [facility] Glucose [Mass/Vol] 95 mg/dL 74-106 [facility] Potassium [Moles/Vol] 4.0 mmol/L 3.5-5.1 [facility] Sodium [Moles/Vol] 140 mmol/L 136-145 [facility] Laboratory - Chemistry and C hemistry - challengeOrdered By: Dr. Mckeon on 09-22-2022 CO2 [Moles/Vol] 28.0 mmol/L 21.0-32.0 [facility] Urea nitrogen/Creatinine [Mass ratio] 18.2 mg/mg 10-20 [facility] No Panel InformationOrdered By: Dr. Mckeon on 09-22-2022 Estimated GFR (MDRD) Amer 75 mL/min >60 [facility] Comment on above: GFR Calc Estimated GFR (MDRD) Non-Af Amer 62 mL/min >60 [facility] Comment on above: Non- GFR Calc Serum or plasma calcium rosie urement (mass/volume)Ordered By: Dr. Mckeon on 09-22-2022 Calcium [Mass/Vol] 9.8 mg/dL 8.5-10.1 [facility] Serum or plasma creatinine m easurement (mass/volume)Ordered By: Dr. Mckeon on 09-22-2022 Creatinine [Mass/Vol] 0.94 mg/dL 0.55-1.02 [facility] Comment on above: The validity of the calculated GFR & GFRAA in patients over 70 years has not been determined. Clinical correlation is essential. Serum or plasma urea nitroge n measurement (mass/volume)Ordered By: Dr. Mckeon on 09-22-2022 Urea nitrogen [Mass/Vol] 17 mg/dL 7-18 [facility] Thin prep Papanicolaou smear with manual screeningOrdered By: Dr. Mckeon on 09-22-2022 Thin prep Papanicolaou smear with manual screening 4 5-15 [facility] Whole blood hemoglobin A1c/t otal hemoglobin ratio (mass fraction)Ordered By: Dr. Mckeon on 09-22-2022 HbA1c (Bld) [Mass fraction] 6.0 % 3.8-5.6 [facility] Comment on above: Normal < 5.7 % Predi abetic 5.7 - 6.4 % Diabetic >or= 6.5 % Please note range changes. Discharge Summaryon 07-26-20 Discharge Summary Normal [facility] Operative Noteon 07-26-2018 Operative Note Normal [facility] Anesthesiology Consultationo n 07-01-2018 Anesthesiology Consultation Normal [facility] Anesthesiology Consultation Normal [facility] Depart Summaryon 07-01-2018 Depart Summary Normal [facility] Inpatient Patient Summaryon 07-01-2018 Inpatient Patient Summary Normal [facility] Main [place] Intraop Recordon Main [place] Intraop Record Normal [facility] [place] Office Visit: [facility]: man isi on 05-09-2017 Documentation of current medications (procedure) Done Invalid Interpretation Code [facility] Work Phone: Fall risk assessment No Invalid Interpretation Code [facility] Work Phone: Tobacco use [facility] Never smoker Invalid Interpretation Code [facility] Work Phone: Lab Report: [employer] 10-10-2 014 GE use only - for [employer] import when terms are not otherwise specified Test not performed mg/g CRE Normal <30 mg/g CRE [facility] Work Phone: Urine, creatinine 16.2 mg/dL Normal NO RANGE EST. [facility] Work Phone: Urine, microalbumin < 5.0 mg/L Normal NO RANGE EST. [facility] Work Phone: Replaced Document: Luis DYSON Observationson 09-10-2013 electrocardiogram interpretation Sinus Rhythm WITHIN NORMAL LIMITS Invalid Interpretation Code [facility] Work Phone: P wave axis, electrocardiogram 18 deg Invalid Interpretation Code [facility] Work Phone: GA interval, electrocardiogram 188 ms Invalid Interpretation Code [facility] Work Phone: Pulse (Heart Rate) 383 ms Invalid Interpretation Code [facility] Work Phone: Pulse (Heart Rate) 68 /min Invalid Interpretation Code [facility] Work Phone: QRS axis, electrocardiogram 11 deg Invalid Interpretation Code [facility] Work Phone: QRS duration, electrocardiogram 95 ms Invalid Interpretation Code [facility] Work Phone: QT interval, electrocardiogram new path ms Invalid Interpretation Code [facility] Work Phone: T wave axis, electrocardiogram -1 deg Invalid Interpretation Code [facility] Work Phone: Vital Signs Date Time Vital Sign Value Performing Clinician Faci fer 05-27-2025 08:19-0400 Body height 160.[address] Marine Mcintosh MD Work Phone: [facility] 05-27-2025 08:19-0400 Body mass index (BMI) [Ratio] 26.7 kg/m2 Dr. Marine Mcintosh MD Work Phone: [facility] 05-27-2025 08:19-0400 Body weight 68.[address] Marine Mcintosh MD Work Phone: [facility] 05-27-2025 08:19-0400 Diastolic blood pressure 86 mm[Hg] Dr. Marine Mcintosh MD Work Phone: [facility] 05-27-2025 08:19-0400 Heart rate 75 /min Dr. Marine Mcintosh MD Work Phone: [facility] 05-27-2025 08:19-0400 Respiratory rate 16 /min Dr. Marine Mcintosh MD Work Phone: [facility] 05-27-2025 08:19-0400 Systolic blood pressure 164 mm[Hg] Dr. Marine Mcintosh MD Work Phone: [facility] 12-14-2023 09:26-0500 Body height 160.[address] Gelacio Mckeon Work Phone: [facility] 12-14-2023 09:26-0500 Body mass index (BMI) [Ratio] 27.1 kg/m2 Dr. Gelacio Mckeon Work Phone: [facility] 12-14-2023 09:26-0500 Body temperature 97.1 [degF] Dr. Gelacio Mckeon Work Phone: [facility] 12-14-2023 09:26-0500 Body weight 69.[address] Gelacio Mckeon Work Phone: [facility] 12-14-2023 09:26-0500 Diastolic blood pressure 77 mm[Hg] Dr. Gelacio Mckeon Work Phone: [facility] 12-14-2023 09:26-0500 Heart rate 86 /min Dr. Gelacio Mckeon Work Phone: [facility] 12-14-2023 09:26-0500 Respiratory rate 17 /min Dr. Gelacio Mckeon Work Phone: [facility] 12-14-2023 09:26-0500 SaO2% (BldA) [Mass fraction] 96 % Dr. Gelacio Mckeon Work Phone: [facility] 12-14-2023 09:26-0500 Systolic blood pressure 138 mm[Hg] Dr. Gelacio Mckeon Work Phone: [facility] 03-23-2023 09:34-0400 Body height 160.[address] Gelacio Mckeon Work Phone: [facility] 03-23-2023 09:34-0400 Body mass index (BMI) [Ratio] 25.4 kg/m2 Dr. Gelacio Mckeon Work Phone: [facility] 03-23-2023 09:34-0400 Body weight 65.[address] Gelacio Mckeon Work Phone: [facility] 03-23-2023 09:34-0400 Diastolic blood pressure 81 mm[Hg] Dr. Gelacio Mckeon Work Phone: [facility] 03-23-2023 09:34-0400 Heart rate 83 /min Dr. Gelacio Mckeon Work Phone: [facility] 03-23-2023 09:34-0400 Respiratory rate 16 /min Dr. Gelacio Mckeon Work Phone: [facility] 03-23-2023 09:34-0400 Systolic blood pressure 144 mm[Hg] Dr. Gelacio Mckeon Work Phone: [facility] 05-09-2017 13:17-0400 BMI (Body Mass Index) 28.93 kg/m2 Keira Honishant [facility] Work Phone: 05-09-2017 13:17-0400 Body Temperature 98.2 [degF] Keira Honishant [facility] Work Phone: 05-09-2017 13:17-0400 BP Diastolic 88 mm[Hg] Keira Honishant [facility] Work Phone: 05-09-2017 13:17-0400 BP Systolic 130 mm[Hg] Keira Honishant [facility] Work Phone: 05-09-2017 13:17-0400 Height 157.48 cm Keira Simpson [facility] Work Phone: 05-09-2017 13:17-0400 Pulse (Heart Rate) 94 /min Keira Honishant [facility] Work Phone: 05-09-2017 13:17-0400 Pulse Oximetry 97 % Keira Honishant [facility] Work Phone: 05-09-2017 13:17-0400 Respiratory Rate 14 /min Keira Honishant [facility] Work Phone: 05-09-2017 13:17-0400 Weight 71.76 kg Keira Honishant [facility] Work Phone: Encounters Encounter Date Encounter Type Care Provider Facility Start: 06-24-2025 rk Wayne Facility :[facility] Start: 05-27-2025 End: 05-27-[address] Karely Wayne MD -[facility] Work Phone: Start: 05-27-2025 End: 05-27-[address] Marine Mcintosh MD Work Phone: -[facility] Start: 04-04-2025 End: 04-04-[address] Marine Mcintosh MD Work Phone: [facility] Work Phone: Start: 04-04-2025 End: 04-04-[address] Gelacio Mckeon DO -[facility] [place] Work Phone: Start: 04-04-2025 End: 04-04-2025 ambulatory Gelacio Mckeon Facility:[facility] Start: 12-31-2024 End: 12-31-[address] Gelacio Mckeon DO -Outpatient [facility] Work Phone: Start: 12-31-2024 End: 12-31-2024 ambulatory Gelacio Mckeon Facility:[facility] Start: 07-18-2024 End: 07-18-2024 ambulatory Marine Mcintosh Facility:[facility] Start: 12-28-2023 End: 12-28-[address] Gelacio Mckeon Work Phone: [facility] Work Phone: Start: 12-28-2023 End: 12-28-[address] Gelacio Mckeon Work Phone: [facility] Work Phone: Start: 12-14-2023 End: 12-14-[address] Gelacio Mckeon Work Phone: [facility] Work Phone: Start: 09-12-2023 End: 09-12-2023 Patient encounter procedure [facility] Work Phone: Start: 09-05-2023 End: 09-05-2023 ambulatory [facility] Work Phone: Start: 09-05-2023 End: 09-05-2023 [facility] Start: 08-24-2023 End: 08-24-2023 Patient encounter procedure [facility] Work Phone: Start: 06-19-2023 End: 06-19-[address] Gelacio Mckeon Work Phone: [facility] Work Phone: Start: 06-19-2023 End: 06-19-[address] Gelacio Mckeon Work Phone: [facility] Work Phone: Start: 05-12-2023 End: 05-12-[address] Gelacio Mckeon Work Phone: [facility] Work Phone: Start: 05-12-2023 End: 05-12-[address] Gelacio Mckeon Work Phone: [facility] Wendy Johns [facility] Start: 04-25-2023 End: 04-25-[address] Gelacio Mckeon Work Phone: [facility] Work Phone: Start: 04-25-2023 End: 04-25-[address] [facility] Start: 04-05-2023 End: 04-05-[address] Gelacio Mckeon Work Phone: [facility] Start: 03-28-2023 Non-patient / Non-visit Dr. Gina Mckeno Work Phone: [facility] Start: 03-28-2023 End: 03-28-[address] Gelacio Mckeon Work Phone: [facility] Work Phone: Start: 03-28-2023 End: 03-28-[address] [facility] Start: 03-23-2023 End: 03-23-[address] Gelacio Mckeon Work Phone: [facility] Start: 12-09-2022 End: 12-09-2022 ambulatory [facility] Work Phone: Start: 12-09-2022 End: 12-09-2022 Patient encounter procedure [facility] Start: 11-24-2022 End: 11-24-2022 ambulatory [facility] Work Phone: Start: 11-24-2022 End: 11-24-2022 Patient encounter procedure [facility] Breast [facility] Start: 09-22-2022 End: 09-22-2022 ambulatory [facility] Work Phone: Start: 09-22-2022 End: 09-22-2022 [facility] Start: 04-21-2022 End: 04-21-[address] Gelacio Mckeon Work Phone: [facility] Start: 03-23-2022 Non-patient / Non-visit Dr. Gina Mckeon Work Phone: [facility] Start: 03-22-2022 End: 03-22-2022 Patient encounter procedure [facility]-Cardiovascular Services Start: 03-11-2022 End: 03-11-2022 Patient encounter procedure [facility]-Radiology, [place] Start: 07-01-2018 End: 07-01-2018 Patient encounter ERASMO WHITMORE Facility:A Procedures Date Procedure Procedure Detail Performing Clinician Start: 12-31-2024 Screening mammography Bharathi Mcintosh MD Work Phone: Start: 12-28-[address] Gelacio Mckeon Work Phone: Start: 09-12-2023 Ultrasonography of breast Start: 09-12-2023 Bilateral mammography Start: 08-24-2023 CT of abdomen and pe lvis without contrast Start: 06-19-2023 X-ray of both feet Dr. Gelacio Mckeon Work Phone: Start: 04-05-2023 Plain chest X-ray Dr. Uma Mckeon Work Phone: Start: 11-24-2022 Screening mammography Start: 04-21-[address] Gelacio Mckeon Work Phone: Start: 03-22-2022 Cardiovascular stres s test using pharmacologic stress agent Start: 03-11-2022 Plain chest X-ray Start: 09-16-2014 End: 09-16-2014 JEET Dunn MD [...] Treatment Date Care Activity Detail Author Start: 05-27-2025 Evaluation of diagnostic study results [facility] Start: 05-09-2017 End: 05-09-2017 Appointment Appointment [facility] Work Phone: Start: 09-16-2014 End: 09-16-2014 JEET LISSYJuancho [facility] Work Phone: Start: 09-16-2014 End: 09-16-2014 Follow Up Appt 1 year Follow Up Appt 1 year [facility] Work Phone: Start: 08-29-2014 End: 08-30-2014 *Microalbumin, Creatine Ratio, rand urine *Microalbumin, Creatine Ratio, rand urine [facility] Work Phone: Start: 09-10-2013 End: 09-10-2013 JEET MARCANO [facility] Work Phone: Start: 09-10-2013 End: 09-10-2013 Follow Up Appt 1 year Follow Up Appt 1 year [facility] Work Phone: Start: 09-10-2013 End: 09-10-2013 Follow Up Appt Other Follow Up Appt Other [facility] Work Phone: Start: 09-10-2013 End: 09-10-2013 Stress Echocardiogram (treadmill) Stress Echocardiogram (treadmill) [facility] Work Phone: [place] Heart Views W str ess and W radionuclide IV [facility] Patient Education POISON%20IVY [facility] Work Phone: [facility] Payers Date Payer Category Payer Private Health Insurance [id number] 2024 Self-pay [id number] 2018 Medicare [id number] 2006 Unknown [id number] Medicare [id number] Unknown [id number] Unknown [id number] Unknown [id number] Unknown [id number] [id number] Unknown [id number] Social History Date Type Detail Facility Start: 06-09-2020 End: 06-09-2020 Tobacco smoking status NCIS Unknown if ever smoked [facility] Start: 06-13-2014 None [facility] Start: 06-13-2014 Spouse/ Signif icant Other [facility] Start: 06-13-2014 Non-smoker [facility] Start: 1945 Sex Assigned At Female [facility] Start: 05-27-2025 Tobacco smoking status NHIS Never smoked tobacco (finding) [facility] Evaluation note Note Date & Type Note Facility Evaluation note No assessment information availa ble [facility] Work Phone: Evaluation note Note Date & Type Note Facility Evaluation note Diagnosis Onset Date Dizziness acute Essential hypertension chron ic Hyperlipidemia chronic Palpitations chronic [facility] Work Phone: Evaluation note Note Date & Type Note Facility Evaluation note Diagnosis Onset Date Left axillary swelling acute [facility] Work Phone: Evaluation note Note Date & Type Note Facility Evaluation note Diagnosis Onset Date Resolution Chest pain acute May 27, 2025 8:15am Abnormal EKG chronic May 27 8:15am Essential hypertension chronic Ju 2024 8:15am Palpitations chronic May 27 8:15am [facility] Work Phone: Reason for referral (narrative) Note Date & Type Note Facility Reason for referral (narrative) No reason for referral information available [facility] Work Phone: Summary Purpose Family History No Family History Records Found Relationship Condition Age at Onset Recorded Date/T sheryl father Diabetes mellitus Unknown mother Hypertension Unknown Cerebrovascular accident (CVA) Unknown grandfather Cardiac disease Unknown brother Malignant neoplasm Unknown Alcoholism Unknown Relationship Condition Age at Onset Recorded Date/T sheryl father Diabetes mellitus Unknown mother Hypertension Unknown Cerebrovascular accident (CVA) Unknown grandfather Cardiac disease Unknown brother Malignant neoplasm Unknown Alcoholism Unknown grandmother Malignant neoplasm of breast Unknown Advance Directives No Advanced Directives Records Found Advance Directive Response Recorded Date/ Time Advance Directives Yes June 13 2:02am Living Will Yes June 13, 2014 2:02am Power of Reading Instructor Yes June 13 4 2:02am Advance Directive Response Recorded Date/ Time Advance Directives Yes June 13 1:02am Living Will Yes June 13, 2014 1:02am Power of Reading Instructor Yes June 13 4 1:02am Advance Directive Response Recorded Date/ Time Advance Directives Yes June 13 2:02am Chief Complaint and Reason for Visit Chief Complaint CHEST PAIN LEXISCAN Chief Complaint CHEST PAIN LEXISCAN LEXISCAN Chief Complaint CHEST PAIN LEXISCAN LEXISCAN LEFT BREAST PAIN Chief Complaint SCREENING Chief Complaint 1 Y FU DIZZINESS Reason for Visit Dizziness Essential hypertension Hyperlipidemia Palpitations Chief Complaint LUQ PAIN ENLARGED LT AXILLARY NODE Chief Complaint ENLARGED LT AXILLARY NODE L BREAST AXILLA LUMP RECHECK LYMPH NODES LT AXILLA/ADD LABS AT MTL Reason for Visit Left axillary swelli ng Chief Complaint Admit Date SCREENING December 31, 2024 8:34am FASTING April 04, 2025 8:18a m Chief Complaint Admit Date FASTING April 04, 2025 8:18a m 1 Y FU May 27, 2025 8:15a m Reason for Visit Admit Date Chest pain May 27, 2025 8:15a m Abnormal EKG May 27, 2025 8:15a m Essential hypertension May 27, 2025 8: 15am Palpitations May 27, 2025 8:15a m Additional Source Comments INFORMATION SOURCE (unrecogn ized section and content) DATE CREATED AUTHOR 08/04/2018 [facility] ([place]) DATE CREATED AUTHOR AUTHOR'S ORGANIZ ATION 06/16/2025 [facility] Goals (unrecognized section and content) Goals may be documented in a n alternate sectionGoals may be documented in an alternate sectionGoals may be documented in an alternate sectionGoals may be documented in an alternate sectionGoals may be documented in an alternate sectionGoals may be documented in an alternate sectionGoals may be documented in an alternate sectionGoals may be documented in an alternate sectionGoals may be documented in an alternate sectionGoals may be documented in an alternate sectionGoals may be documented in an alternate sectionGoals may be documented in an alternate sectionGoals may be documented in an alternate sectionGoals may be documented in an alternate section Care Teams (unrecognized sec tion and content) Team Status: Active Member Role Status Dates Dr. Janis Rueda MD Family Provider Active Dr. Gelacio Mckeon DO Primary Care Provider Active Team Status: Inactive Member Role Status Dates Dr. Gelacio Mckeon DO Primary Care Provider, Attendin g Provider Active Team Status: Inactive Member Role Status Dates Dr. Gelacio Mckeon DO Primary Care Provider, Referrin g Provider Active Ebony De La Cruz OUTCOME ANALYST, OUTCOME ANALYST-C Attending Provider Active Team Status: Active Member Role Status Dates Dr. Gelacio Mckeon DO Primary Care Provider Active Dr. Phill Arndt MD Attending Provider Active Team Status: Inactive Member Role Status Dates Dr. Gelacio Mckeon DO Primary Care Provider Active Ebony De La Cruz OUTCOME ANALYST, OUTCOME ANALYST-C Attending Provider, Referring P rovider Active Team Status: Active Member Role Status Dates Dr. Gelacio cMkeon DO Primary Care Provider Active Dr. Phill Arndt MD Attending Provider Active Ebony De La Cruz OUTCOME ANALYST, OUTCOME ANALYST-C Referring Provider Active Team Status: Inactive Member Role Status Dates Dr. Gelacio Mckeon DO Primary Care Prov ider, Attending Provider, Referring Provider Active Team Status: Inactive Member Role Status Dates Dr. Gelacio Mckeon DO Primary Care Provider Active Jessica Reddy NP-C Attending Provider, Referring Prov ider Active Team Status: Active Member Role Status Dates Dr. Gelacio Mckeon DO Primary Care Provider Active Jessica Reddy NP-C Attending Provider, Referring Prov ider Active Team Status: Inactive Member Role Status Dates Dr. Gelacio Mckeon DO Primary Care Provider, Referrin g Provider Active Dr. Jaqueline Loera MD Attending Provider Active Team Status: Inactive Member Role Status Dates Dr. Gelacio Mckeon DO Primary Care Provider, Other Pr ovider Active Dr. Jaqueline Loera MD Attending Provider, Referring Provider Active Team Status: Active Member Role Status Dates Dr. Marine Mcintosh MD Primary Care Provider Active Team Status: Inactive Member Role Status Dates Dr. Marine Mcintosh MD Primary Care Provider Active Start: December 31, 2024 End: December 31, 2024 Dr. Gelacio Mckeon DO Attending Provider Active Start: December 31, 2024 End: December 31, 2024 Dr. Gelacio Mckeon DO Referring Provider Active Start: December 31, 2024 End: December 31, 2024 Team Status: Inactive Member Role Status Dates Dr. Marine Mcintosh MD Primary Care Provider Active Start: April 04, 2025 End: April 04, 2025 Dr. Gelacio Mckeon DO Attending Provider Active Start: April 04, 2025 End: April 04, 2025 Dr. Gelacio Mckeon DO Referring Provider Active Start: April 04, 2025 End: April 04, 2025 Team Status: Active Member Role/Relationship Status Dates Dr. Gelacio Mckeon DO Primary Care Provider Active Team Status: Inactive Member Role/Relationship Status Dates Dr. Marine Mcintosh MD Primary Care Provider Active Start: April 04, 2025 End: April 04, 2025 Dr. Gelacio Mckeon DO Attending Provider Active Start: April 04, 2025 End: April 04, 2025 Dr. Gelacio Mckeon DO Referring Provider Active Start: April 04, 2025 End: April 04, 2025 Team Status: Inactive Member Role/Relationship Status Dates Dr. Marine Mcintosh MD Referring Provider Active Start: May 27, 2025 End: May 27, 2025 Dr. Karely Wayne MD Attending Provider Active Start: May 27, 2025 End: May 27, 2025 Dr. Gelacio Mckeon DO Primary Care Provider Active Start: May 27, 2025 End: May 27, 2025 FOR RECORDS PERTAINING TO PATIENTS WHO ARE [...] BE BASED ON THE PRIMARY CLINICAL RECORDS. [facility] [employer] [facility]. provides no warranty or guarantee of the accuracy or completeness of information in this document.
--- NOTE | 2025-06-24 17:22 | STRESSREP ---
Stress Test Report Pharmacologic myocardial perfusion stress test. 79-year-old lady with a history of chest pain Resting EKG demonstrates sinus rhythm with a rate of 66 bpm. Resting blood pressure is 162/80 mmHg. 0.4 mg of regadenoson was infused per usual protocol followed by rapid intravenous saline flush injection. Continuous EKG monitoring was performed. The maximum heart rate was 99 bpm which was 69% of max impacted heart rate the maximum workload was 1 metabolic equivalent. At rest there were no ST or T wave changes noted to suggest ischemia and at peak infusion nonspecific ST changes were noted which did not meet the criteria for ischemia. No clinical angina is noted. The final blood pressure was 144/74 mmHg. Myocardial perfusion protocol. 10.7 mCi of technetium 99m sestamibi was injected at rest. 0.4 mg of regadenoson was infused per usual protocol. At peak infusion 32.7 mCi of technetium 99m sestamibi was injected stress images were obtained stress and rest images were reconstructed and compared in the short axis vertical long and horizontal long axis. Gated images were also obtained. Perfusion SPECT analysis: Review of the stress images demonstrate normal uptake of tracer noted in all areas of the myocardium. The resting images similar demonstrated normal uptake of tracer noted in all areas of the myocardium. No areas of reversibility are noted to suggest ischemia and no previous infarct is noted. Gated SPECT analysis: The gated ejection fraction is 78%. Conclusion: Normal pharmacologic myocardial perfusion stress test. Preserved ejection fraction.
== END | disposition home or self-care (01) ==
LOC: CVS 06:22
PROVIDERS: PCP Family Medicine; Referring Provider Internal Medicine Cardiovascular Disease; Visit Provider Internal Medicine Cardiovascular Disease
DX: R07.9 Chest pain, unspecified (principal); I10 Essential (primary) hypertension; R00.2 Palpitations; R94.31 Abnormal electrocardiogram [ECG] [EKG]
CPT/HCPCS: 78452; 93017; 93306; A9500; A4216; J2785

== ENCOUNTER → 2025-07-22 | Outpatient (CLI) | payer MEDICARE, SELFPAY ==
[2025-07-22 13:14] LABS: CORTISOL AM 7.51 ug/dL (6.02-18.40)
== END | disposition home or self-care (01) ==
LOC: BFHLAB 08:23
PROVIDERS: PCP Family Medicine; Visit Provider Family Medicine
DX: E11.9 Type 2 diabetes mellitus without complications (principal); E26.1 Secondary hyperaldosteronism
CPT/HCPCS: 36415; 82088; 82533; 83036

== ENCOUNTER → 2025-08-12 | Outpatient (CLI) | payer MEDICARE, SELFPAY ==
[2025-08-12 10:51] LABS: Anion Gap 11 (5-15); BUN 16 mg/dL (4-19); BUN/Creat Ratio 20.9 RATIO (10-20); Calcium,Total 8.9 mg/dL (7.6-11.0); Carbon Dioxide 22.2 mmol/L (21.0-32.0); Chloride 107 mmol/L (98-108); Glucose 121 mg/dL (70-99); Potassium 3.8 mmol/L (3.3-5.1)
== END | disposition home or self-care (01) ==
LOC: MTLAB 08:01
PROVIDERS: PCP Family Medicine; Referring Provider Family Medicine; Visit Provider Family Medicine
DX: E03.9 Hypothyroidism, unspecified (principal); E26.1 Secondary hyperaldosteronism
CPT/HCPCS: 36415; 80048; 82088; 84244; 84439; 84443